=== PATIENT | male | born 1950 | race Caucasian/White ===

== ENCOUNTER → 2017-09-18 | Outpatient (CLI) | payer OTHER, MEDICARE ==
[2017-09-21 14:01] LABS: Large VLDL Particle Number,NMR 1.8 nmol/L (<=2.7)
== END | disposition home or self-care (01) ==
LOC: LABWHC1 08:13
PROVIDERS: ATTEND Internal Medicine Cardiovascular Disease
DX: I25.10 Atherosclerotic heart disease of native coronary artery without angina pectoris (principal)
CPT/HCPCS: 36415; 83704

== ENCOUNTER 2021-01-21 13:35 | Inpatient (IN) | payer MEDICARE, OTHER ==
[2021-01-21] MEDS ORDERED: SODIUM CHLORIDE 0.9% 1,000 ML IV STA (14:03)
--- NOTE | 2021-01-21 14:07 | ED ---
General Adult HPI - General Chief complaint: Neuro Symptoms/Deficit Stated complaint: Neuro Symptoms Time Seen by Provider: 01/21/21 13:43 Source: patient, EMS, RN notes reviewed Mode of arrival: EMS Limitations: altered mental status, physical limitation - History of Present Illness Initial comments: Patient is a pleasant 70-year-old male presenting to the emergency department with concern for change in mental status. Last known well was around 7:00 last night. Family thought patient was sleeping deeply. They did try to aggressively wake him up around 11:30 and found patient to be altered. Patient has not been feeling well for the past several days. Patient is nonverbal at this time and provides no history. - Related Data Home Medications Medication Instructions Recorded Confirmed Atorvastatin Calcium [Lipitor] 20 mg PO DAILY 01/21/21 01/21/21 Lisinopril [Prinivil] 10 mg PO DAILY 01/21/21 01/21/21 atenoloL [Atenolol] 25 mg PO DAILY 01/21/21 01/21/21 Allergies Allergy/AdvReac Type Severity Reaction Status Date / Time No Known Allergies Allergy Verified 01/21/21 17:06 Review of Systems ROS Statement: Those systems with pertinent positive or pertinent negative responses have been documented in the HPI. ROS Other: All systems not noted in ROS Statement are negative. Limitations: ROS unobtainable due to patients medical condition General Exam Limitations: altered mental status, physical limitation General appearance: alert, in no apparent distress Head exam: Present: atraumatic, normocephalic Eye exam: Present: normal appearance, PERRL, other (Unable to assess extraocular muscles) ENT exam: Present: normal oropharynx Neck exam: Present: normal inspection Respiratory exam: Present: normal lung sounds bilaterally Cardiovascular Exam: Present: regular rate, normal rhythm GI/Abdominal exam: Present: soft. Absent: tenderness Extremities exam: Present: normal inspection Neurological exam: Present: alert, altered, other (Right-sided neglect. Nonverbal.) Expanded Neurological exam: Present: total aphasia, protecting the airway Motor strength exam: RUE: 0, LUE: 5, RLE: 0, LLE: 4 Eye Response: (4) open spontaneously Motor Response: (4) withdraws to pain Verbal Response: incomprehensible sounds Psychiatric exam: Present: other (Nonverbal) Skin exam: Present: normal color Course Vital Signs 01/21/21 01/21/21 01/21/21 13:40 13:44 14:00 Temperature 97.5 F L 97.5 F L Pulse Rate 78 78 Respiratory 18 18 Rate Blood Pressure 110/66 87/70 O2 Sat by Pulse 99 100 Oximetry 01/21/21 01/21/21 01/21/21 14:15 14:30 14:45 Temperature Pulse Rate 78 78 78 Respiratory 18 18 18 Rate Blood Pressure 87/70 87/70 87/70 O2 Sat by Pulse 100 100 100 Oximetry 01/21/21 01/21/21 01/21/21 15:00 15:15 15:27 Temperature Pulse Rate 78 78 78 Respiratory 18 18 18 Rate Blood Pressure 87/70 87/70 87/70 O2 Sat by Pulse 100 100 100 Oximetry 01/21/21 16:02 Temperature 98.0 F Pulse Rate 87 Respiratory 16 Rate Blood Pressure 98/69 O2 Sat by Pulse 98 Oximetry - Reevaluation(s) Reevaluation #1: 01/21/21 16:09 Call was received from radiologist regarding concern for left MCA infarct. 2 mm shift. Neural interventional list has been paged. CTA held at this time secondary to renal function. Family is unclear on severity of previous renal issues however knows he has seen the primary care physician previously for this. Patient is not on dialysis. 01/21/21 17:21 Case was received discussed with Dr. Monk who did recommend transfer to [facility] for neuro ICU, potentially craniotomy. He agrees with no CTA at this time. Discussion had with family. They are unclear but do not think they wanted to transfer at this time. They're made aware of severity of this case and potential to be life-threatening. Case was also discussed with Dr. Zapata who will admit covering for Dr. De Leon. He did come evaluate patient. EKG Findings - EKG Comments: EKG Findings:: Normal sinus rhythm with rate 85. CT 168. QRS 74. QT 358. QTC 426. Left axis. Inferior Q waves. No acute ST change. Medical Decision Making - Lab Data Result diagrams: 01/21/21 14:10 01/21/21 14:10 Lab Results 01/21/21 01/21/21 01/21/21 Range/Units 14:00 14:10 14:10 WBC 16.8 H (3.8-10.6) k/uL RBC 4.55 (4.30-5.90) m/uL Hgb 14.8 (13.0-17.5) gm/dL Hct 43.0 (39.0-53.0) % MCV 94.5 (80.0-100.0) fL MCH 32.5 (25.0-35.0) pg MCHC 34.4 (31.0-37.0) g/dL RDW 12.6 (11.5-15.5) % Plt Count 439 (150-450) k/uL MPV 7.3 Neutrophils % 86 % Lymphocytes % 8 % Monocytes % 5 % Eosinophils % 0 % Basophils % 0 % Neutrophils # 14.5 H (1.3-7.7) k/uL Lymphocytes # 1.4 (1.0-4.8) k/uL Monocytes # 0.8 (0-1.0) k/uL Eosinophils # 0.1 (0-0.7) k/uL Basophils # 0.0 (0-0.2) k/uL PT 9.9 (9.0-12.0) sec INR 0.9 (<1.2) APTT 22.4 (22.0-30.0) sec Sodium (137-145) mmol/L Potassium (3.5-5.1) mmol/L Chloride (98-107) mmol/L Carbon Dioxide (22-30) mmol/L Anion Gap mmol/L BUN (9-20) mg/dL Creatinine (0.66-1.25) mg/dL Est GFR (CKD-EPI)AfAm (>60 ml/min/1.73 sqM) Est GFR (CKD-EPI)NonAf (>60 ml/min/1.73 sqM) Glucose (74-99) mg/dL POC Glucose (mg/dL) 125 H (75-99) mg/dL POC Glu Cut Off Machine Unloader ID Alondra Maza Calcium (8.4-10.2) mg/dL Total Bilirubin (0.2-1.3) mg/dL AST (17-59) U/L ALT (4-49) U/L Alkaline Phosphatase (38-126) U/L Troponin I (0.000-0.034) ng/mL Total Protein (6.3-8.2) g/dL Albumin (3.5-5.0) g/dL Urine Color Urine Appearance (Clear) Urine pH (5.0-8.0) Ur Specific [place] (1.001-1.035) Urine Protein (Negative) Urine Glucose (UA) (Negative) Urine Ketones (Negative) Urine Blood (Negative) Urine Nitrite (Negative) Urine Bilirubin (Negative) Urine Urobilinogen (<2.0) mg/dL Ur Leukocyte Esterase (Negative) Urine RBC (0-5) /hpf Urine WBC (0-5) /hpf Ur Squamous Epith Cells (0-4) /hpf Urine Bacteria (None) /hpf Urine Mucus (None) /hpf 01/21/21 01/21/21 01/21/21 Range/Units 14:10 14:10 14:14 WBC (3.8-10.6) k/uL RBC (4.30-5.90) m/uL Hgb (13.0-17.5) gm/dL Hct (39.0-53.0) % MCV (80.0-100.0) fL MCH (25.0-35.0) pg MCHC (31.0-37.0) g/dL RDW (11.5-15.5) % Plt Count (150-450) k/uL MPV Neutrophils % % Lymphocytes % % Monocytes % % Eosinophils % % Basophils % % Neutrophils # (1.3-7.7) k/uL Lymphocytes # (1.0-4.8) k/uL Monocytes # (0-1.0) k/uL Eosinophils # (0-0.7) k/uL Basophils # (0-0.2) k/uL PT (9.0-12.0) sec INR (<1.2) APTT (22.0-30.0) sec Sodium 135 L (137-145) mmol/L Potassium 5.0 (3.5-5.1) mmol/L Chloride 106 (98-107) mmol/L Carbon Dioxide 16 L (22-30) mmol/L Anion Gap 13 mmol/L BUN 85 H (9-20) mg/dL Creatinine 5.04 H (0.66-1.25) mg/dL Est GFR (CKD-EPI)AfAm 12 (>60 ml/min/1.73 sqM) Est GFR (CKD-EPI)NonAf 11 (>60 ml/min/1.73 sqM) Glucose 129 H (74-99) mg/dL POC Glucose (mg/dL) (75-99) mg/dL POC Glu Cut Off Machine Unloader ID Calcium 9.2 (8.4-10.2) mg/dL Total Bilirubin 0.3 (0.2-1.3) mg/dL AST 27 (17-59) U/L ALT 32 (4-49) U/L Alkaline Phosphatase 146 H (38-126) U/L Troponin I <0.012 (0.000-0.034) ng/mL Total Protein 7.6 (6.3-8.2) g/dL Albumin 4.3 (3.5-5.0) g/dL Urine Color Yellow Urine Appearance Cloudy (Clear) Urine pH 5.0 (5.0-8.0) Ur Specific [place] 1.016 (1.001-1.035) Urine Protein Trace H (Negative) Urine Glucose (UA) Negative (Negative) Urine Ketones Negative (Negative) Urine Blood Small H (Negative) Urine Nitrite Negative (Negative) Urine Bilirubin Negative (Negative) Urine Urobilinogen <2.0 (<2.0) mg/dL Ur Leukocyte Esterase Negative (Negative) Urine RBC 3 (0-5) /hpf Urine WBC 2 (0-5) /hpf Ur Squamous Epith Cells 2 (0-4) /hpf Urine Bacteria Rare H (None) /hpf Urine Mucus Rare H (None) /hpf - Radiology Data Radiology results: report reviewed (CT brain shows moderate to large left MCA acute to subacute infarct. No hemorrhage. 2 mm shift. No herniation. Possible mastoiditis.), image reviewed (Chest x-ray reported as no definite acute process.) Disposition Clinical Impression: Cerebrovascular accident (CVA) Disposition: ADMITTED IP TO THIS HOSP Condition: Serious Is patient prescribed a controlled substance at d/c from ED?: No Referrals: Alexandra De Leon MD [Primary Care Provider] - 1-2 days Decision Time: 17:22
[2021-01-21 14:11] LABS: Glucose,Whole Blood 125 mg/dL (75-99)
[2021-01-21 14:25] LABS: Basophils % (A) 0 %; Eosinophils # (A) 0.1 k/uL (0-0.7); Eosinophils % (A) 0 %; HGB 14.8 gm/dL (13.0-17.5); Lymphocytes # (A) 1.4 k/uL (1.0-4.8); Lymphocytes % (A) 8 %; MCH 32.5 pg (25.0-35.0); MCHC 34.4 g/dL (31.0-37.0); MCV 94.5 fL (80.0-100.0); Mean Platelet Volume 7.3; Monocytes # (A) 0.8 k/uL (0-1.0); Monocytes % (A) 5 %; Neutrophils # (A) 14.5 k/uL (1.3-7.7); Neutrophils % (A) 86 %; Platelet Count 439 k/uL (150-450); RBC 4.55 m/uL (4.30-5.90); RDW 12.6 % (11.5-15.5); WBC 16.8 k/uL (3.8-10.6)
[2021-01-21 14:32] LABS: Appearance,Urine Cloudy (Clear); Bacteria,Urine Rare /hpf; Bilirubin,Urine Negative (Negative); Blood,Urine Small (Negative); Color,Urine Yellow; Glucose,Urine (UA) Negative (Negative); Ketones,Urine Negative (Negative); Leukocyte Esterase,Urine Negative (Negative); Mucus,Urine Rare /hpf; Nitrite,Urine Negative (Negative); Protein,Urine Trace (Negative); RBC,Urine 3 /hpf (0-5); Specific Gravity,Urine 1.016 (1.001-1.035); Squamous Epithelial Cell,Urine 2 /hpf (0-4); Urobilinogen,Urine <2.0 mg/dL (<2.0); WBC,Urine 2 /hpf (0-5)
[2021-01-21 14:33] LABS: INR 0.9 (<1.2); Partial Thromboplastin Time 22.4 sec (22.0-30.0); Prothrombin Time 9.9 sec (9.0-12.0)
[2021-01-21 14:39] LABS: Albumin 4.3 g/dL (3.5-5.0); Calcium 9.2 mg/dL (8.4-10.2); Total Bilirubin 0.3 mg/dL (0.2-1.3); Total Protein 7.6 g/dL (6.3-8.2)
--- NOTE | 2021-01-21 15:26 | CT ---
EXAMINATION TYPE: CT brain wo con for TPA DATE OF EXAM: 01/21/2021 COMPARISON: None HISTORY: 70-year-old male with neurologic deficit, acute, stroke suspected, Left sided weakness, apha aundrea, altered mental status. TECHNIQUE: Examination was done in axial plane without intravenous contrast. Coronal and sagittal r econstructions performed. CT DLP: 1129.4 mGycm Automated exposure control for dose reduction was used. FINDINGS: Large area of cortical and subcortical hypodensity involving significant portion of the left MCA terr itory extending into the anterior left temporal lobe, left frontal lobe, and anterior left parietal l obe. Associated sulcal effacement. No acute intracranial hemorrhage is seen. There is minimal 2 mm of rightward midline shift and slight mass effect onto the left lateral ventricle. The right lateral ve ntricle is mildly enlarged likely secondary to central cerebellar atrophy. No effacement of basal subarachnoid cisterns. Paranasal sinuses are well pneumatized. Leftward nasal septal deviation. Opacification within the lef t-sided mastoid air cells. IMPRESSION: 1. Moderate to large sized left MCA territory acute to subacute infarct. No hemorrhagic transformatio n. Minimal 2 mm of rightward midline shift. No herniation seen. Findings called to Dr. Santamaria in the ER at 3:20pm. 2. Fluid in the left mastoid air cells, possible mastoiditis.
--- NOTE | 2021-01-21 15:42 | XR ---
EXAMINATION TYPE: XR chest 1V portable DATE OF EXAM: 01/21/2021 Comparison: None Clinical History: 70-year-old male confusion, altered mental status Findings: Heart upper limits of normal in size. Mild interstitial prominence. Hazy lung densities likely relati ng to portable technique and overlying soft tissue. No definite consolidation or pleural effusion all owing for this limitation. Impression: Limited portable exam. Hazy densities related to overlying soft tissue. No definite acute process.
[2021-01-21] MEDS ORDERED: ONDANSETRON 4 MG/2 ML VIAL IVP STA (15:46)
[2021-01-21] MEDS: ASPIRIN 300 MG SUPP RECTAL SCH (21:07)
[2021-01-21] MEDS: SODIUM CHLORIDE 0.9% 1,000 ML IV SCH (21:08)
--- NOTE | 2021-01-21 22:22 | P.HPIM ---
History of Present Illness H&P Date: 01/21/21 Chief Complaint: Altered mental status. Patient is a 70-year-old male with a known history of hypertension, history of MT and coronary artery disease with stent placement in 2002, previous history of smoking was brought to the hospital by family due to altered mental status. Patient last known well at about 7 PM last night. Patient has been increasingly sleepy and found by family around 11 AM. He was not responding well due to altered mental status and could not communicate. Family also noticed that his right arm and leg are not moving. according to the family patient has not been feeling well for the past 1 month. He is increasingly weak and lethargic. Decrease of oral intake. Patient does not have any fever or chills. No cough or sputum production. No n ausea vomiting or diarrhea. Currently patient is unable and mostly history was taken from the family at bedside. Patient was hypotensive with systolic pressure in the 80s and was given 2 L fluid bolus in the ER. CT head without contrast showed moderate to large left MCA territory acute to subacute infarct. No hemorrhagic transformation. Minimal 2 mm of rightward midline shift. Fluid in the left mastoid air cells possible mastoiditis. Chest x-ray showed limited portable chest. Hazy densities related to overlying soft tissue. No definite acute process. EKG showed normal sinus rhythm. Laboratory data showed WBC 16.8, hemoglobin 14.8 and platelets 439 Sodium 135 potassium 5.0 chloride 106 bicarb is 16 BUN 85 and creatinine 5.04, AST 27 ALT 32 and alk phos 146 UA is negative for infection. Review of Systems Complete review of systems could not be obtained from the patient. Past Medical History Past Medical History: Hypertension, Myocardial Infarction (MT) Last Myocardial Infarction Date:: 2002 History of Any Multi-Drug Resistant Organisms: None Reported Past Surgical History: Heart Catheterization With Stent, Hernia Repair Past Anesthesia/Blood Transfusion Reactions: No Reported Reaction Date of Last Stent Placement:: 2002 Past Psychological History: No Psychological Hx Reported Smoking Status: Former smoker Additional Drug Use History / Comment(s): quit smoking 2 months ago; smoked pac k/day - Past Family History Father Family Medical History: Myocardial Infarction (MT) Mother Family Medical History: CVA/TIA Medications and Allergies Home Medications Medication Instructions Recorded Confirmed Type Atorvastatin Calcium [Lipitor] 20 mg PO DAILY 01/21/21 01/21/21 History Lisinopril [Prinivil] 10 mg PO DAILY 01/21/21 01/21/21 History atenoloL [Atenolol] 25 mg PO DAILY 01/21/21 01/21/21 History Allergies Allergy/AdvReac Type Severity Reaction Status Date / Time No Known Allergies Allergy Verified 01/21/21 17:06 Physical Exam Vitals: Vital Signs Temp Pulse Pulse Resp BP BP Pulse Ox 01/21/21 19:44 98.9 F 96 18 107/92 98 01/21/21 18:32 98 F 93 15 107/70 99 01/21/21 16:02 98.0 F 87 16 98/69 98 01/21/21 15:27 78 18 87/70 100 01/21/21 15:15 78 18 87/70 100 01/21/21 15:00 78 18 87/70 100 01/21/21 14:45 78 18 87/70 100 01/21/21 14:30 78 18 87/70 100 01/21/21 14:15 78 18 87/70 100 01/21/21 14:00 78 18 87/70 100 01/21/21 13:44 97.5 F L 78 18 110/66 99 01/21/21 13:40 97.5 F L Intake and Output 01/21/21 01/21/21 01/21/21 06:59 14:59 22:59 Other: Weight 93.304 kg 93.304 kg PHYSICAL EXAMINATION: Patient is lying in the bed . Trying to communicate but could not speak.. Able to open his eyes HEENT: Normocephalic. Neck is supple. Pupils reactive. Nostrils clear. Oral cavity is moist. Neck reveals no JVD, carotid bruits, or thyromegaly. CHEST EXAMINATION: Trachea is central. Symmetrical expansion. Lung estevez clear to auscultation and percussion. CARDIAC: Normal S1, S2 with no gallops. No murmurs ABDOMEN: Soft. Bowel sounds normal. No organomegaly. No abdominal bruits. Extremities: reveal no edema. No clubbing or cyanosis Neurologically Patient is awake alert but not oriented. Right-sided paralysis. No mouth deviation or drooping. Skin: No rash or skin lesions. Psychiatric: Could not be assessed at this time. Musculoskeletal: No joint swelling or deformity. Normal range of motion. Results CBC & Chem 7: 01/21/21 14:10 01/21/21 14:10 Labs: Abnormal Lab Results - Last 24 Hours (Table) 01/21/21 01/21/21 01/21/21 Range/Units 14:00 14:10 14:10 WBC 16.8 H (3.8-10.6) k/uL Neutrophils # 14.5 H (1.3-7.7) k/uL Sodium 135 L (137-145) mmol/L Carbon Dioxide 16 L (22-30) mmol/L BUN 85 H (9-20) mg/dL Creatinine 5.04 H (0.66-1.25) mg/dL Glucose 129 H (74-99) mg/dL POC Glucose (mg/dL) 125 H (75-99) mg/dL Alkaline Phosphatase 146 H (38-126) U/L Urine Protein (Negative) Urine Blood (Negative) Urine Bacteria (None) /hpf Urine Mucus (None) /hpf 01/21/21 Range/Units 14:14 WBC (3.8-10.6) k/uL Neutrophils # (1.3-7.7) k/uL Sodium (137-145) mmol/L Carbon Dioxide (22-30) mmol/L BUN (9-20) mg/dL Creatinine (0.66-1.25) mg/dL Glucose (74-99) mg/dL POC Glucose (mg/dL) (75-99) mg/dL Alkaline Phosphatase (38-126) U/L Urine Protein Trace H (Negative) Urine Blood Small H (Negative) Urine Bacteria Rare H (None) /hpf Urine Mucus Rare H (None) /hpf Thrombosis Risk Factor Assmnt - DVT/VTE Prophylaxis DVT/VTE Prophylaxis: Mechanical Prophylaxis ordered - Choose All That Apply Any of the Below Risk Factors Present?: No Other Risk Factors: No Each Risk Factor Represents 3 Points: Family history of DVT/PE Each Risk Factor Represents 5 Points: Stroke (< 1 month) Thrombosis Risk Factor Assessment Total Risk Factor Score: 8 Thrombosis Risk Factor Assessment Level: High Risk Assessment and Plan Assessment: Acute left MCA territory infarct with right-sided paralysis. Acute kidney injury with creatinine level 5.04. possible ATN Metabolic acidosis secondary to acute kidney injury Hypovolemic hyponatremia Hypertension. Currently hypotensive Coronary artery disease with history of stent placement in 2002 Previous history of smoking DVT prophylaxis with SCDs Plan: Patient will be continued on telemetry monitoring. Continue with neurochecks. Continue with IV fluids. Monitor renal function. Patient was given a dose of aspirin statins will be started. Neurology was consulted. Discussed with the family regarding transfer to tertiary care facility for further surgical intervention if needed. Family does not want to be transferred at this time. Patient is not a candidate for TPA since the onset of symptoms more than 4 hours. Prognosis poor at this time. Speech and swallow evaluation and PT OT will be consulted.. Time with Patient: Greater than 30
--- NOTE | 2021-01-21 23:09 | US ---
EXAMINATION TYPE: US carotid duplex BILAT DATE OF EXAM: 01/21/2021 COMPARISON: NONE CLINICAL HISTORY: Stenosis. Stenosis. Hx [place], HTN, former smoker. EXAM MEASUREMENTS: RIGHT: Peak Systolic Velocity (PSV) cm/sec ----- Right CCA: 76.2 ----- Right ICA: 99.6 ----- Right ECA: 81.7 ICA/CCA ratio: 1.3 RIGHT: End Diastole cm/sec ----- Right CCA: 19.0 ----- Right ICA: 33.7 ----- Right ECA: 9.1 LEFT: Peak Systolic Velocity (PSV) cm/sec ----- Left CCA: 66.6 ----- Left ICA: 69.2 ----- Left ECA: 94.0 ICA/CCA ratio: 1.0 LEFT: End Diastole cm/sec ----- Left CCA: 7.2 ----- Left ICA: 9.9 ----- Left ECA: 7.2 VERTEBRALS (direction of flow): Right Vertebral: Antegrade Left Vertebral: Antegrade Rhythm: Normal Intimal thickening seen bilaterally. Plaque seen within bilateral carotid bulbs, bilateral prox ICA, and left ECA. Great amount of left prox ICA plaque which appears to be hypoechoic. No elevated veloc ities at this time. Hypoechoic area seen within the right neck measuring 2.4 x 0.6 x 0.4 cm. IMPRESSION: There is bilateral plaque formation. Velocities are suggestive of less than 50% stenosis in both inte rnal carotid arteries. There is antegrade flow in the vertebral arteries. Criteria for Assigning % of Stenosis / Diameter reduction (Estimation based on the indirect measurements of the internal carotid artery velocities (ICA PSV). 1. Normal (no stenosis)=ICA PSV < 125 cm/s: ratio < 2.0: ICA EDV<40 cm/s. 2. Less than 50% stenosis=ICA PSV < 125 cm/s: ratio < 2.0: ICA EDV<40 cm/s. 3. 50 to 69% stenosis=ICA PSV of 125 to 230 cm/s: ration 2.0 ? 4.0: ICA EDV 40-100 cm/s. 4. Greater than 70% stenosis to near occlusion= ICA PSV > 230 cm/s: ratio > 4.0: ICA EDV > 100 cm/s. 5. Near occlusion= ICA PSV velocities may be low or undetectable: variable ratio and ICA EDV. 6. Total occlusion=unable to detect flow.
[2021-01-22] MEDS: SODIUM CHLORIDE 0.9% 1,000 ML IV SCH ×3 (06:29→20:01)
[2021-01-22 07:35] LABS: Basophils % (A) 0 %; Eosinophils % (A) 0 %; HCT 41.7 % (39.0-53.0); Lymphocytes # (A) 1.2 k/uL (1.0-4.8); Lymphocytes % (A) 7 %; MCH 32.4 pg (25.0-35.0); MCHC 33.6 g/dL (31.0-37.0); MCV 96.5 fL (80.0-100.0); Monocytes % (A) 5 %; Neutrophils # (A) 15.9 k/uL (1.3-7.7); Neutrophils % (A) 87 %; Platelet Count 388 k/uL (150-450); RBC 4.32 m/uL (4.30-5.90); RDW 12.7 % (11.5-15.5); WBC 18.3 k/uL (3.8-10.6)
[2021-01-22 07:59] LABS: Calcium 9.2 mg/dL (8.4-10.2)
--- NOTE | 2021-01-22 08:26 | MR ---
EXAMINATION TYPE: MR brain wo con DATE OF EXAM: 01/22/2021 7:56 AM COMPARISON: NONE HISTORY: Stroke FINDINGS: The ventricles, basal cisterns and sulci overlying the cerebral convexities are moderately enlarged. There is evidence of mild periventricular white matter ischemic demyelination. Remote deep white matter insults are also noted. Diffusion-weighted imaging demonstrates a large area of abnormal increased signal involving the left middle cerebral artery territory measuring 10.2 cm in AP dimension compatible with acute CVA. There i s mass effect upon the left lateral ventricle. 2.5 mm of rightward midline shift. No evidence for hem orrhagic transformation. Acute intracranial hemorrhage or extra-axial collection is not evident. Chronic left mastoiditis. Mild mucosal thickening ethmoid air cells. IMPRESSION: large area of abnormal increased signal involving the left middle cerebral artery territory measuring 10.2 cm in AP dimension compatible with acute CVA. There is mass effect upon the left lateral ventri irena. 2.5 mm of rightward midline shift. No evidence for hemorrhagic transformation.
--- NOTE | 2021-01-22 09:15 | P.CNNES ---
History of Present Illness Consult date: 01/21/21 Requesting physician: Da Santamaria Reason for Consult: CVA History of Present Illness: Patient is a 70-year-old male came to the hospital by ambulance at 1:35 PM today for evaluation of mental status change. Patient at present is aphasic. Patient's and son were present, who provided with history. According to patient's , he has not been feeling well or last couple months. He was told that his knee is "too dry". He has been following up with his primary physician. He was not eating well, poor appetite. However still functional, and was talking normally. Last night he went to bed at 7 PM. This morning patient was still asleep at 11 AM, when patient's tried to wake him up, and he was in a deep sleep. She came back and then tried to wake him up but he would still not wakeup therefore she called the ambulance at 12:34 PM. When EMS arrived, patient was laying supine in his bed awake and tracks. He does not respond to speech, his face appears asymmetric and he only moves his left arm. His blood pressure was 105/68, pulse is 73, blood glucose 125 and temperature 98.1. Saturation 93%. Patient was brought to the hospital. Patient's vitals on arrival blood pressure 110/66, pulse is [address] head showed moderate to large size left MCA territory acute to subacute infarct. No hemorrhagic transformation. Minimal 2 mm of rightward midline shift. No herniation seen. Findings in the left mastoid air cells possible mastoiditis. Chest x-ray showed limited portable exam. Hazy densities related to overlying soft tissue. No definite acute process. EKG shows normal sinus rhythm. Left axis deviation. Blood test shows W BC 16.8 hemoglobin 14.8, platelets 439. PT/PTT normal. Sodium 135 potassium 5.0, BUN 85, creatinine 5.04. Hepatic panel normal. UA negative. In the ER, the ED staff discussed patient with stroke neurologist Dr. Hernandez. Patient was not a candidate for TPA, as he clearly came outside the window for TPA. CTA was not performed because of severe renal dysfunction. Patient is not on dialysis. At 5:21 PM stroke neurologist recommended patient to be transferred to [facility] for neuro ICU, potential craniotomy. The ED staff discussed the family and they were not sure to transfer the patient at this time. Patient does take Lipitor 20 mg, atenolol, aspirin 81 mg daily since he had an MRI or year ago, lisinopril. At present patient continues to be aphasic, with right hemiplegic. Patient does not have any history of hypertension or diabetes. He smoked 1 pack per day for 50 years, quit couple months ago. Review of Systems ROS unobtainable: due to mental status Past Medical History - Past Family History Father Family Medical History: Myocardial Infarction ([place]) Mother Family Medical History: CVA/TIA Medications and Allergies Home Medications Medication Instructions Recorded Confirmed Type Atorvastatin Calcium [Lipitor] 20 mg PO DAILY 01/21/21 01/21/21 History Lisinopril [Prinivil] 10 mg PO DAILY 01/21/21 01/21/21 History atenoloL [Atenolol] 25 mg PO DAILY 01/21/21 01/21/21 History Allergies Allergy/AdvReac Type Severity Reaction Status Date / Time No Known Allergies Allergy Verified 01/21/21 17:06 Physical Examination - Vital Signs Vital Signs: Vital Signs Temp Pulse Resp BP Pulse Ox 01/21/21 18:32 98 F 93 15 107/70 99 01/21/21 16:02 98.0 F 87 16 98/69 98 01/21/21 15:27 78 18 87/70 100 01/21/21 15:15 78 18 87/70 100 01/21/21 15:00 78 18 87/70 100 01/21/21 14:45 78 18 87/70 100 01/21/21 14:30 78 18 87/70 100 01/21/21 14:15 78 18 87/70 100 01/21/21 14:00 78 18 87/70 100 01/21/21 13:44 97.5 F L 78 18 110/66 99 01/21/21 13:40 97.5 F L Intake and Output 01/21/21 01/21/21 01/21/21 06:59 14:59 22:59 Other: Weight 93.304 kg Patient is an elderly male, who is laying in the bed, appears slightly groggy, but is awake and alert otherwise. Patient globally aphasic, cannot name, repeat or follow commands. Attention, concentration and fund of knowledge cannot be assessed. On cranial examination, pupils are round and reacting to light, patient has left gaze preference. visual estevez could not be checked, extraocular muscles are intact with no nystagmus. Patient has left facial weakness, central type,, patient did not protrude his tongue. Palatal elevation and sensation could not be checked, hearing and shoulder shrug and facial sensations could not be checked. On muscle strength testing, patient is flaccid in the right upper and right lower extremity. Patient does move his left arm voluntarily, holds it up in air and give some effort but because of comprehension, does not follow commands to the fullest. Likewise he seems to move his left leg fairly well but did not cooperate with examination. His strength appears normal in the left arm and left leg. Deep tendon reflexes are diminished and plantars are upgoing bilaterally. Sensory to touch could not be assessed. Cerebellar function could not be assessed. Tone and bulk of muscles normal. Gait not checked. On general examination, there is no carotid bruit or murmur, S1-S2 audible. Abdomen is soft nontender. Chest is clear. Peripheral pulses are present. No edema. Results - Laboratory Findings CBC and BMP: 01/22/21 06:56 01/22/21 06:56 Abnormal Lab Findings: Abnormal Labs 01/21/21 01/21/21 01/21/21 14:00 14:10 14:10 WBC 16.8 H Neutrophils # 14.5 H Sodium 135 L Carbon Dioxide 16 L BUN 85 H Creatinine 5.04 H Glucose 129 H POC Glucose (mg/dL) 125 H Alkaline Phosphatase 146 H Urine Protein Urine Blood Urine Bacteria Urine Mucus 01/21/21 14:14 WBC Neutrophils # Sodium Carbon Dioxide BUN Creatinine Glucose POC Glucose (mg/dL) Alkaline Phosphatase Urine Protein Trace H Urine Blood Small H Urine Bacteria Rare H Urine Mucus Rare H Assessment and Plan Assessment: * Acute ischemic stroke involving the left MCA vascular territory, presenting with global aphasia and right hemiplegia. Patient not a candidate for TPA or mechanical thrombectomy. * Acute kidney injury, uncertain if any chronic component. Patient's renal functions were normal as of 06/18/2019. * Hypertension * Tobacco use Plan: * I discussed with patient's and son about patient's current condition. It appears they were not very clear about the need for transfer, and the reason for transfer to a higher level of care. I informed the patient's that neurology services are available at [facility], however if patient's cerebral edema gets worse, then he may require craniotomy to relieve the pressure, and neurosurgery services not available in this hospital. Also informed them, that sometimes the need for craniotomy occurs suddenly/urgently, in which case transfer to her facility may take some time, which could have serious consequences including . Given patient's large stroke involving dominant hemisphere, and it querry long-term prognosis, patient's and son consented for patient to stay in the hospital. However is swelling gets worse, then would consider transfer in future. * Repeat computed tomography scan of head/MRI of the brain in a.m. for a follow- up. * Aspirin 325 mg rectally. * Carotid Doppler * 2-D echo with bubble study. * Fasting lipid panel and hemoglobin A1c * Continue neuro checks * Hydration for acute kidney injury. * Consider hypertonic saline/mannitol, if okay from renal standpoint.
[2021-01-22] MEDS: ATORVASTATIN 20 MG TAB PO SCH (11:23)
[2021-01-22] MEDS: ASPIRIN 300 MG SUPP RECTAL SCH (13:05)
[2021-01-22] MEDS: MANNITOL 20% IV SCH ×2 (13:11→19:59)
--- NOTE | 2021-01-22 15:04 | P.PN ---
Subjective Progress Note Date: 01/22/21 Patient was seen for a follow-up. Patient's son was present today. Patient appears more lethargic today. Please refer to examination below. Objective - Vital Signs Vital signs: Vital Signs Temp 98.2 F 01/22/21 08:15 Pulse 79 01/22/21 08:15 Resp 18 01/22/21 08:15 BP 110/71 01/22/21 08:15 Pulse Ox 99 01/22/21 08:15 Intake & Output 01/21/21 01/22/21 01/22/21 18:59 06:59 18:59 Intake Total 0 Output Total 875 Balance -875 0 Weight 93.304 kg 110 kg Intake: Oral 0 Output: Urine 875 Other: Voiding Method Indwelling Catheter Indwelling Catheter - Exam On examination patient is lethargic, but does open his eyes, and makes eye contact. He does track. Patient does not comprehend. Patient is globally aphasic. Cannot name, repeat. On cranial nerve examination pupils are round and reacting. Patient has some roving eye movements at time. Extraocular muscles are intact. Patient has right facial asymmetry. Patient is right hemiplegic. Strength is normal on the left side. Reflexes are brisk on the right. Plantars up on the right, down on left. Sensations and cerebellar functions cannot be assessed. - Labs CBC & Chem 7: 01/22/21 06:56 01/22/21 06:56 Labs: Abnormal Lab Results - Last 24 Hours (Table) 01/22/21 01/22/21 Range/Units 06:56 06:56 WBC 18.3 H (3.8-10.6) k/uL Neutrophils # 15.9 H (1.3-7.7) k/uL Chloride 110 H (98-107) mmol/L Carbon Dioxide 17 L (22-30) mmol/L BUN 86 H (9-20) mg/dL Creatinine 3.73 H (0.66-1.25) mg/dL Glucose 135 H (74-99) mg/dL Assessment and Plan Assessment: * Acute ischemic stroke involving the left MCA vascular territory, presenting with global aphasia and right hemiplegia. Patient not a candidate for TPA or mechanical thrombectomy. * Acute kidney injury, uncertain if any chronic component. Patient's renal fu nctions were normal as of 06/18/2019. * Hypertension * Tobacco use Plan: * MRI of the brain without contrast was performed today. It revealed a large area of abnormal increased signal involving the left middle cerebral artery territory measuring 10.2 cm in the AP diameter mentioned compatible with acute CVA. There is mass effect upon the lateral ventricle. 2.5 mm of rightward midline shift. No evidence for hemorrhage. * Patient still has significant amount of left ventricular cavity preserved, which could prevent from worsening midline shifting or herniation. * Recommend hypertonic saline or mannitol for the next 24-48 hours, if okay from a renal standpoint. * Continue Aspirin 300 mg rectally. (Avoid dual antiplatelet medication because of high risk of hemorrhagic conversion) * Carotid Doppler revealed bilateral plaque formation. Velocities are suggestive of less than 50% stenosis in both ICA. Antegrade flow in both vertebral arteries. * 2-D echo with bubble study was technically difficult study. Left ventricular wall thickness, systolic functions are normal. EF greater than 55%. Left ventricle size is normal. Left atrial size is normal. Noted valve was not well visualized. * Fasting lipid panel still pending * Hemoglobin A1c 6.3 * Continue neuro checks * Transfer to ICU for more closer monitoring. * Hydration for acute kidney injury. Patient's renal functions has improved BUN 86, creatinine 3.73. * Consider hypertonic saline/mannitol, if okay from renal standpoint. * Repeat computed tomography scan of head of the brain in a.m. 01/23/2021 for a follow-up. Dr. Everett will resume neurology care in the morning. * Discussed with patient's son in detail.
[2021-01-22 15:48] LABS: Glucose,Whole Blood 119 mg/dL (75-99)
--- NOTE | 2021-01-22 16:41 | P.CNPUL ---
History of Present Illness Consult date: 01/22/21 Requesting physician: Carmen Zapata Reason for consult: other Chief complaint: CVA. History of present illness: Pulmonary consultation dated 01/22/2021. 70-year-old male who presented to the emergency department on 01/21/2021, at 1335. He apparently was noted to have mental status changes around 7:00 from the prior night. Apparently family members are was just sleeping deeply. The patient was evaluated, and was thought to have a ischemic stroke, involving the left middle cerebral artery. Currently, the patient is in the intensive care unit. He was transferred there because of a midline shift on a computed tomography scan. He is receiving mannitol, nasal O2 at 3 L, and saline at 100 mL an hour. He was admitted to the hospital service and he was consulted by neurology. Currently, the patient is responsive but very lethargic and somnolent. He does open his eyes. He does respond to verbal commands. He can move his left side. He does not move his right upper extremity at all. He has a right facial droop, he can flare his toes on his right foot. The patient apparently has a history of myocardial infarction, prior stent placement, hernia, chronic tobacco use, and hypertension. Home medications included that the tour, lisinopril, and atenolol. There were no ALLERGIES. White count 18.3, he will 14, hematocrit 41.7, and platelet count 388,000. PT, INR, and PTT are normal. Sodium is 138, potassium 5, chlorides 110, CO2 17, anion gap 11, with a BUN and creatinine of 86 and 3.73. Urine shows rare bacteria. Brain CT on admission shows moderate to large sized left MCA territory acute to subacute infarct. No hemorrhagic transformation. There is 2 mm a right which midline shift. No herniation. Chest x-ray shows no acute process. Carotid Doppler shows bilateral plaque formation and velocities are suggestive of less than 50% stenosis in both internal carotid arteries. Brain MRI shows large area of abnormal increased signal involving the left middle cerebral artery territory measuring 10.2 cm in AP dimension compatible with an acute CVA. There is mass effect upon the left lateral ventricle. 2.5 mm of rightward midline shift. No evidence of hemorrhagic transformation. Review of Systems REVIEW OF SYSTEMS: CONSTITUTIONAL: [Negative.] NEUROLOGIC: Right facial droop, and profound right-sided weakness/paresis. HEENT: [ Negative.] CARDIAC: [Negative.] PULMONARY: [Negative.] GI: [Negative.] : [Negative.] RHEUMATOLOGIC: [ Negative.] IMMUNOLOGIC: [ Negative.] ENDOCRINE: [Negative. ] DERMATOLOGIC: [Negative.] Past Medical History Past Medical History: Hypertension, Myocardial Infarction ([place]) Last Myocardial Infarction Date:: 2002 History of Any Multi-Drug Resistant Organisms: None Reported Past Surgical History: Heart Catheterization With Stent, Hernia Repair Past Anesthesia/Blood Transfusion Reactions: No Reported Reaction Date of Last Stent Placement:: 2002 Past Psychological History: No Psychological Hx Reported Smoking Status: Former smoker Additional Drug Use History / Comment(s): quit smoking 2 months ago; smoked pack/day - Past Family History Father Family Medical History: Myocardial Infarction ([place]) Mother Family Medical History: CVA/TIA Medications and Allergies Home Medications Medication Instructions Recorded Confirmed Type Atorvastatin Calcium [Lipitor] 20 mg PO DAILY 01/21/21 01/21/21 History Lisinopril [Prinivil] 10 mg PO DAILY 01/21/21 01/21/21 History atenoloL [Atenolol] 25 mg PO DAILY 01/21/21 01/21/21 History Allergies Allergy/AdvReac Type Severity Reaction Status Date / Time No Known Allergies Allergy Verified 01/21/21 17:06 Physical Exam Osteopathic Statement: *. No significant issues noted on an osteopathic structural exam other than those noted in the History and Physical/Consult. Vitals: Vital Signs Temp Pulse Pulse Resp BP BP Pulse Ox 01/22/21 16:00 98.6 F 76 20 101/67 99 01/22/21 14:00 18 01/22/21 12:00 97.7 F 78 18 100/66 98 01/22/21 08:15 98.2 F 79 18 110/71 99 01/22/21 04:00 97.4 F L 83 16 99/66 97 01/22/21 00:00 98.0 F 74 18 100/67 98 01/21/21 20:00 96 18 106/73 99 01/21/21 19:44 98.9 F 96 18 107/92 98 01/21/21 18:32 98 F 93 15 107/70 99 Intake and Output 01/22/21 01/22/21 01/22/21 06:59 14:59 22:59 Intake Total 0 1038 Output Total 875 300 Balance -875 0 738 Intake: Intake, IV Titration 1038 Amount Empty Bag 1 bag In 138 Mannitol 20% Pmx 138 ml @ 276 mls/hr IV Q8H SISSY Rx #:[id number] Sodium Chloride 0.9% 1, 900 000 ml @ 100 mls/hr IV . Q10H SISSY Rx#:[id number] Oral 0 Output: Urine 875 300 Other: Voiding Method Indwelling Catheter Indwelling Catheter Weight 110 kg No acute distress, very lethargic/somnolent, but does arouse, currently on 3 L nasal cannula. HEENT examination is grossly unremarkable. Neck supple. Full range of motion. No adenopathy thyromegaly or neck vein distention. Cardiovascular examination reveals regular rhythm rate. S1-S2 normal. No S3 or S4. No discernible murmur noted. Heart rate 76 bpm. Lungs reveal scattered bilateral rhonchi. No wheezes or crackles. I believe the patient's at high risk for aspiration. Abdomen soft bowel sounds are heard. No masses or tenderness. Extremities are intact. No cyanosis clubbing or edema. Skin is without rash or lesion. Neurologic examination reveals a somewhat lethargic/somnolent individual who miguel s arouse and does respond to verbal stimuli. He can move his left side. He's a right facial droop. He has no movement in his right upper extremity. He can flare the toes of the right foot. Results - Laboratory Findings CBC and BMP: 01/22/21 06:56 01/22/21 06:56 PT/INR, D-dimer PT 9.9 sec (9.0-12.0) 01/21/21 14:10 INR 0.9 (<1.2) 01/21/21 14:10 Abnormal lab findings: Abnormal Labs 01/21/21 01/21/21 01/21/21 14:00 14:10 14:10 WBC 16.8 H Neutrophils # 14.5 H Sodium 135 L Chloride Carbon Dioxide 16 L BUN 85 H Creatinine 5.04 H Glucose 129 H POC Glucose (mg/dL) 125 H Alkaline Phosphatase 146 H Urine Protein Urine Blood Urine Bacteria Urine Mucus 01/21/21 01/22/21 01/22/21 14:14 06:56 06:56 WBC 18.3 H Neutrophils # 15.9 H Sodium Chloride 110 H Carbon Dioxide 17 L BUN 86 H Creatinine 3.73 H Glucose 135 H POC Glucose (mg/dL) Alkaline Phosphatase Urine Protein Trace H Urine Blood Small H Urine Bacteria Rare H Urine Mucus Rare H 01/22/21 15:47 WBC Neutrophils # Sodium Chloride Carbon Dioxide BUN Creatinine Glucose POC Glucose (mg/dL) 119 H Alkaline Phosphatase Urine Protein Urine Blood Urine Bacteria Urine Mucus - Diagnostic Findings Chest x-ray: image reviewed Assessment and Plan Assessment: Acute left MCA infarct, with midline shift, and with significant right sided weakness. History of CAD, with previous myocardial infarction, and stent placement. History of ongoing tobacco use until recently. History of hypertension. Acute kidney injury versus chronic kidney disease. Plan: Plan dated 01/22/2021. Apparently the neurology services wanted the patient transferred to [facility]. For some reason, the refused. The patient is a full code. The patient is receiving nasal O2, saline, and also mannitol. In addition, orders for aspirin, Lipitor, and Zofran are noted. The patient should have nothing by mouth at this time. I believe he is at high risk for aspiration. Additional recommendations and suggestions are forthcoming. I've asked the ICU nurse to contact the hospital service, and begin the transfer process. I did speak to some family members in the waiting room. Time with Patient: Greater than 30
--- NOTE | 2021-01-22 17:11 | ECHOF ---
Referral Reason:Thrombus MEASUREMENTS -------- HEIGHT: 182.9 cm WEIGHT: 109.8 kg BP: RVIDd: 3.8 cm (< 3.3) IVSd: 0.9 cm (0.6 - 1.1) LVIDd: 5.2 cm (3.9 - 5.3) LVPWd: 1.0 cm (0.6 - 1.1) IVSs: 1.2 cm LVIDs: 3.5 cm LVPWs: 1.4 cm MV E Trevin: 0.45 m/s MV DecT: 180 ms MV A Trevin: 0.70 m/s MV E/A Ratio: 0.64 RAP: 5.00 mmHg RVSP: 10.90 mmHg FINDINGS -------- Sinus rhythm. This was a techncally difficult study with suboptimal views, , Lumason utilized for enhancement of im ages. LV size, wall thickness and systolic function are normal, with an EF greater than 55%. The left yisel tricular size is normal. The right ventricle is mildly enlarged. The left atrial size is normal. The right atrial size is normal. 5.0mg OF Lumason UTLIZED: 2 OR MORE WALL SEGMENTS NOT VISUALIZED. The aortic valve was not well visualized. Mild mitral regurgitation is present. Mild tricuspid regurgitation present. Right ventricular systolic pressure is normal at < 35 mmHg. The pulmonic valve was not well visualized. There is a trivial pericardial effusion present. CONCLUSIONS -------- 1. This was a techncally difficult study with suboptimal views, , Lumason utilized for enhancement of images. 2. LV size, wall thickness and systolic function are normal, with an EF greater than 55%. 3. The left ventricular size is normal. 4. The right ventricle is mildly enlarged. 5. The left atrial size is normal. 6. The right atrial size is normal. 7. 5.0mg OF Lumason UTLIZED: 2 OR MORE WALL SEGMENTS NOT VISUALIZED. 8. The aortic valve was not well visualized. 9. Mild mitral regurgitation is present. 10. Mild tricuspid regurgitation present. 11. The pulmonic valve was not well visualized. 12. There is a trivial pericardial effusion present. EARLY CHILDHOOD AIDE CLASSROOM: Lisa Vanessa RDCS
[2021-01-22 17:49] LABS: Hemoglobin A1C 6.3 % (4.0-6.0)
[2021-01-23 03:08] LABS: Chol/HDL Ratio 4.84; LDL Cholesterol,Calculated 101.8 mg/dL (0.0-131.0); VLDL Calculation 21.2 mg/dL (5.00-40.00)
[2021-01-23] MEDS: MANNITOL 20% IV SCH (04:02)
[2021-01-23] MEDS: SODIUM CHLORIDE 0.9% 1,000 ML IV SCH (04:03)
[2021-01-23] MEDS: ATORVASTATIN 20 MG TAB PO SCH (07:46)
[2021-01-23] MEDS: ASPIRIN 300 MG SUPP RECTAL SCH (07:52)
--- NOTE | 2021-01-23 10:16 | P.PN ---
Subjective Progress Note Date: 01/23/21 Principal diagnosis: Acute CVA involving the left MCA 70-year-old male who presented to the emergency department on 01/21/2021, at 1335. He apparently was noted to have mental status changes around 7:00 from the prior night. Apparently family members are was just sleeping deeply. The patient was evaluated, and was thought to have a ischemic stroke, involving the left middle cerebral artery. Currently, the patient is in the intensive care unit. He was transferred there because of a midline shift on a computed tomography scan. He is receiving mannitol, nasal O2 at 3 L, and saline at 100 mL an hour. He was admitted to the hospital service and he was consulted by neurology. Currently, the patient is responsive but very lethargic and somnolent. He does open his eyes. He does respond to verbal commands. He can move his left side. He does not move his right upper extremity at all. He has a right facial droop, he can flare his toes on his right foot. The patient apparently has a history of myocardial infarction, prior stent placement, hernia, chronic tobacco use, and hypertension. Home medications included that the tour, lisinopril, and atenolol. There were no ALLERGIES. White count 18.3, he will 14, hematocrit 41.7, and platelet count 388,000. PT, INR, and PTT are normal. Sodium is 138, potassium 5, chlorides 110, CO2 17, anion gap 11, with a BUN and creatinine of 86 and 3.73. Urine shows rare bacteria. Brain CT on admission shows moderate to large sized left MCA territory acute to subacute infarct. No hemorrhagic transformation. There is 2 mm a right which midline shift. No herniation. Chest x-ray shows no acute process. Carotid Doppler shows bilateral plaque formation and velocities are suggestive of less than 50% stenosis in both internal carotid arteries. Brain MRI shows large area of abnormal increased signal involving the left middle cerebral artery territory measuring 10.2 cm in AP dimension compatible with an acute CVA. There is mass effect upon the left lateral ventricle. 2.5 mm of rightward midline shift. No evidence of hemorrhagic transformation. The patient is seen today 01/23/2021 in follow-up in the intensive care unit. He is currently awake, weak. He is aphasic and has right hemiplegia. He was not a candidate for TPA or thrombectomy per neurology. MRI of the brain had revealed a large area of abnormal increased signal involving the left middle cerebral artery territory measuring 10.2 cm compatible with acute CVA. There is mass effect upon the lateral ventricle. 2.5 mm of rightward midline shift. No evidence of hemorrhage. He did receive mannitol. Remains on statins and aspirin. 0.9 normal saline at 100 ML's per hour. Follow-up CAT scan of the brain is pending. Objective - Vital Signs Vital signs: Vital Signs Temp 97.9 F 01/23/21 08:00 Pulse 86 01/23/21 08:00 Resp 25 H 01/23/21 08:00 BP 108/70 01/23/21 08:00 Pulse Ox 95 01/23/21 08:00 Intake & Output 01/22/21 01/23/21 01/23/21 18:59 06:59 18:59 Intake Total 1238 1476 200 Output Total 820 1980 190 Balance 418 -504 10 Weight 92.8 kg Intake: IV 1376 200 Empty Bag 1 bag In 276 Mannitol 20% Pmx 138 ml @ 276 mls/hr IV Q8H [facility] Rx #:[id number] Sodium Chloride 0.9% 1, 1100 200 000 ml @ 100 mls/hr IV . Q10H [facility] Rx#:[id number] Intake, IV Titration 1238 100 Amount Empty Bag 1 bag In 138 Mannitol 20% Pmx 138 ml @ 276 mls/hr IV Q8H [facility] Rx #:[id number] Sodium Chloride 0.9% 1, 1100 100 000 ml @ 100 mls/hr IV . Q10H [facility] Rx#:[id number] Oral 0 Output: Urine 820 1980 190 Other: Voiding Method Indwelling Catheter Indwelling Catheter Indwelling Catheter - Exam 70-year-old gentleman. No acute distress, arousable, aphasic, currently on 2 L nasal cannula. HEENT examination is grossly unremarkable. Right-sided asymmetry Neck supple. Full range of motion. No adenopathy thyromegaly or neck vein distention. Cardiovascular examination reveals regular rhythm rate. S1-S2 normal. No S3 or S4. No discernible murmur noted. Heart rate 76 bpm. Lungs reveal scattered bilateral rhonchi. No wheezes or crackles. The patient is at high risk for aspiration. Abdomen soft bowel sounds are heard. No masses or tenderness. Extremities are intact. No cyanosis clubbing or edema. Skin is without rash or lesion. Neurologic examination reveals an awake somewhat lethargic, individual who does arouse and does respond to verbal stimuli. He can move his left side. He's a right facial droop. He has no movement in his right upper extremity. He can flare the toes of the right foot. - Labs CBC & Chem 7: 01/22/21 06:56 01/22/21 06:56 Labs: Abnormal Lab Results - Last 24 Hours (Table) 01/22/21 01/22/21 01/22/21 Range/Units 06:56 06:56 15:47 POC Glucose (mg/dL) 119 H (75-99) mg/dL Hemoglobin A1c 6.3 H (4.0-6.0) % HDL Cholesterol 32.0 L (40.0-60.0) mg/dL Assessment and Plan Assessment: 1 Acute left MCA infarct, with midline shift, and with significant right sided weakness. 2 History of CAD, with previous myocardial infarction, and stent placement. 3 History of ongoing tobacco use until recently. 4 History of hypertension. 5 Acute kidney injury versus chronic kidney disease. Plan: The patient was seen and evaluated by Dr. Lyons Follow-up computed tomography scan of the brain is pending Neurology is on the case Remains on statins, aspirin PT/OT/Speech therapy Will monitor here in the ICU another 24 hours I, the cosigning physician, performed a history & physical examination of the patient. Lungs sounds with few scattered rhonchi. Maintaining good O2 saturations in the 90s on 2 L/m per nasal cannula I discussed the assessment and plan of care with my nurse practitioner, Che Salinas. I attest to the above note as dictated by her.
[2021-01-23 10:48] LABS: Basophils # (A) 0.1 k/uL (0-0.2); Basophils % (A) 0 %; Eosinophils % (A) 0 %; HCT 43.6 % (39.0-53.0); HGB 14.4 gm/dL (13.0-17.5); Lymphocytes # (A) 0.9 k/uL (1.0-4.8); Lymphocytes % (A) 6 %; MCH 32.2 pg (25.0-35.0); MCV 97.5 fL (80.0-100.0); Monocytes # (A) 0.8 k/uL (0-1.0); Monocytes % (A) 5 %; Neutrophils # (A) 14.2 k/uL (1.3-7.7); Neutrophils % (A) 88 %; Platelet Count 393 k/uL (150-450); RBC 4.48 m/uL (4.30-5.90); RDW 12.9 % (11.5-15.5); WBC 16.2 k/uL (3.8-10.6)
[2021-01-23 10:57] LABS: Albumin 3.8 g/dL (3.5-5.0); Calcium 9.2 mg/dL (8.4-10.2); Potassium 5.1 mmol/L (3.5-5.1); Total Bilirubin 0.4 mg/dL (0.2-1.3); Total Protein 6.9 g/dL (6.3-8.2)
--- NOTE | 2021-01-23 11:05 | P.PN ---
Subjective Progress Note Date: 01/23/21 Principal diagnosis: acute left middle cerebral artery infarct The patient is a 70-year-old male who is seen in neurologic follow-up on January 23, 2021, via teleneurology. The patient's history is reviewed. MRI and CT scan images are reviewed. The patient is seen in the intensive care unit. According to his nurse, the patient did receive mannitol. There has been no definitive change in his neurologic status. The patient was seen by speech therapy who felt the patient should remain nothing by mouth. He is at high risk for aspiration. Objective - Vital Signs Vital signs: Vital Signs Temp 97.9 F 01/23/21 08:00 Pulse 89 01/23/21 10:00 Resp 19 01/23/21 10:00 BP 110/65 01/23/21 10:00 Pulse Ox 94 L 01/23/21 10:00 Intake & Output 01/22/21 01/23/21 01/23/21 18:59 06:59 18:59 Intake Total 1238 1476 400 Output Total 820 1980 490 Balance 418 -504 -90 Weight 92.8 kg Intake: IV 1376 400 Empty Bag 1 bag In 276 Mannitol 20% Pmx 138 ml @ 276 mls/hr IV Q8H [facility] Rx #:[id number] Sodium Chloride 0.9% 1, 1100 400 000 ml @ 100 mls/hr IV . Q10H [facility] Rx#:[id number] Intake, IV Titration 1238 100 Amount Empty Bag 1 bag In 138 Mannitol 20% Pmx 138 ml @ 276 mls/hr IV Q8H [facility] Rx #:[id number] Sodium Chloride 0.9% 1, 1100 100 000 ml @ 100 mls/hr IV . Q10H [facility] Rx#:[id number] Oral 0 Output: Urine 820 1980 490 Other: Voiding Method Indwelling Catheter Indwelling Catheter Indwelling Catheter - Exam Gen.: The patient is reclining in the bed. He has 2 L O2 via nasal cannula. He is in no acute distress. HEENT: Head is atraumatic, normocephalic. Fundus not visualized. There is no scleral icterus. Mucous membranes are dry. Neck: Supple without carotid bruits Heart: Regular rate and rhythm Neurological examination Mental status: The patient does open his eyes to his name. There is some spontaneous movement of the left upper extremity. The patient is nonverbal. He follows no commands. Cranial nerves: Pupils are equal at 5 mm and briskly reactive. There are some a roving eye movements. There is no gaze preference. There is a right facial droop. Gag reflex is absent. Motor: Right upper and lower extremities are flaccid. There is some movement of the left upper extremity. Muscle strength testing cannot be carried out secondary to comprehension. Sensation: The patient does localize and grimace in response to noxious stimulation of the right upper and left upper and lower extremities. There is no withdrawal. Deep tendon reflexes: 1+/4+ in the left upper extremity. Left lower extremity reflexes are absent. Right-sided reflexes 2+/4+. Repeat CT scan of the brain was performed this morning. There is no evidence of hemorrhage. There is no evidence of herniation. CT scan appears to be stable. - Labs CBC & Chem 7: 01/23/21 10:23 01/23/21 10:23 Labs: Abnormal Lab Results - Last 24 Hours (Table) 01/22/21 01/22/21 01/22/21 Range/Units 06:56 06:56 15:47 POC Glucose (mg/dL) 119 H (75-99) mg/dL Hemoglobin A1c 6.3 H (4.0-6.0) % HDL Cholesterol 32.0 L (40.0-60.0) mg/dL Assessment and Plan Assessment: 1. Large left middle cerebral artery infarct with compression of the left lateral ventricle and midline shift 2. Carotid Doppler reports proximal left ICA plaque 3. 2-D echocardiogram reveals no significant findings. I am unable to determine if this study was performed with saline 4. Acute kidney injury 5. History of coronary artery disease 6. History of hypertension Plan: 1. Continue to closely monitor neurologic status 2. Discussed status with the patient's and daughter 3. Continue supportive care Time with Patient: Greater than 30 (spent 35 minutes with patient via teleneurology)
--- NOTE | 2021-01-23 15:26 | CT ---
EXAMINATION TYPE: CT brain wo con DATE OF EXAM: 01/23/2021 COMPARISON: 01/21/2021 HISTORY: 70-year-old male AMS TECHNIQUE: Examination was done in axial plane without intravenous contrast. Coronal and sagittal r econstructions performed. CT DLP: 1200.4 mGycm Automated exposure control for dose reduction was used. FINDINGS: Evolving left MCA territory infarct with increasing degree of hypodensity. This involves greater than of third of the entire left MCA territory. There is greater degree of mass effect with greater parti al flattening of the left lateral ventricle and now 4 mm of rightward midline shift. No cristina herniat ion. No effacement of basal subarachnoid cisterns. No acute intracranial hemorrhage. Background mild ventricular prominence. Opacification of left mastoid air cells redemonstrated. Leftward nasal septal deviation. IMPRESSION: Evolving left MCA territory infarct with greater degree of hypodensity. Infarct involves more than a third of the MCA territory. Greater degree of mass effect now with slight 4 mm of rightward midline s hift and greater degree of partial flattening of the left lateral ventricle. No hemorrhagic transform ation.
[2021-01-24 04:55] LABS: Basophils % (A) 0 %; Eosinophils # (A) 0.1 k/uL (0-0.7); Eosinophils % (A) 0 %; HCT 40.9 % (39.0-53.0); HGB 13.3 gm/dL (13.0-17.5); Lymphocytes # (A) 1.4 k/uL (1.0-4.8); Lymphocytes % (A) 8 %; MCH 31.8 pg (25.0-35.0); MCHC 32.6 g/dL (31.0-37.0); MCV 97.5 fL (80.0-100.0); Mean Platelet Volume 7.4; Monocytes # (A) 0.7 k/uL (0-1.0); Monocytes % (A) 4 %; Neutrophils # (A) 16.3 k/uL (1.3-7.7); Neutrophils % (A) 87 %; Platelet Count 365 k/uL (150-450); RDW 13.2 % (11.5-15.5); WBC 18.7 k/uL (3.8-10.6)
[2021-01-24 05:21] LABS: Albumin 3.3 g/dL (3.5-5.0); Calcium 9.1 mg/dL (8.4-10.2); Potassium 4.7 mmol/L (3.5-5.1); Total Bilirubin 0.5 mg/dL (0.2-1.3); Total Protein 6.3 g/dL (6.3-8.2)
[2021-01-24] MEDS: SODIUM CHLORIDE 0.9% 1,000 ML IV SCH ×2 (07:54→07:55)
[2021-01-24] MEDS: ATORVASTATIN 20 MG TAB PO SCH (08:55)
[2021-01-24] MEDS: ASPIRIN 300 MG SUPP RECTAL SCH (08:58)
--- NOTE | 2021-01-24 09:36 | P.PN ---
Subjective Progress Note Date: 01/22/21 Principal diagnosis: Acute ischemic CVA Patient is a 70-year-old male with a known history of hypertension, history of [place] and coronary artery disease with stent placement in 2002, previous history of smoking was brought to the hospital by family due to altered mental status. Johnny bui last known well at about 7 PM last night. Patient has been increasingly sleepy and found by family around 11 AM. He was not responding well due to altered mental status and could not communicate. Family also noticed that his right arm and leg are not moving. according to the family patient has not been feeling well for the past 1 month. He is increasingly weak and lethargic. Decrease of oral intake. Patient does not have any fever or chills. No cough or sputum production. No nausea vomiting or diarrhea. Currently patient is unable and mostly history was taken from the family at bedside. Patient was hypotensive with systolic pressure in the 80s and was given 2 L fluid bolus in the ER. CT head without contrast showed moderate to large left MCA territory acute to subacute infarct. No hemorrhagic transformation. Minimal 2 mm of rightward midline shift. Fluid in the left mastoid air cells possible mastoiditis. Chest x-ray showed limited portable chest. Hazy densities related to overlying soft tissue. No definite acute process. EKG showed normal sinus rhythm. Laboratory data showed WBC 16.8, hemoglobin 14.8 and platelets 439 Sodium 135 potassium 5.0 chloride 106 bicarb is 16 BUN 85 and creatinine 5.04, AST 27 ALT 32 and alk phos 146 UA is negative for infection. Pt. is in the telemetry unit. Patient's mental status and weakness. Able to open his eyes but could not communicate. The patient is more lethargic. MRI of the brain was done showed large area of abnormal increased signal involving the left MCA territory with mass effect on the lateral ventricle. 2 mm rightward midline shift. Neurology is following. Recommended to start on mannitol. Patient will be transferred to ICU for close monitoring. Laboratory data showed WBC 18.3, hemoglobin 14.0 and platelets 388 BUN 86 and creatinine 3.73. Improving renal function. LDL 101.8 and B12 749 and TSH 0.983 Complete review of systems could not be obtained from the patient. Objective - Vital Signs Vital signs: Vital Signs Temp 97.4 F L 01/22/21 20:00 Pulse 87 01/22/21 22:00 Resp 22 01/22/21 22:00 BP 104/63 01/22/21 22:00 Pulse Ox 95 01/22/21 22:00 Intake & Output 01/22/21 01/22/21 01/23/21 06:59 18:59 06:59 Intake Total 1238 538 Output Total 875 820 950 Balance -875 418 -412 Weight 110 kg Intake: IV 438 Empty Bag 1 bag In 138 Mannitol 20% Pmx 138 ml @ 276 mls/hr IV Q8H [facility] Rx #:[id number] Sodium Chloride 0.9% 1, 300 000 ml @ 100 mls/hr IV . Q10H [facility] Rx#:[id number] Intake, IV Titration 1238 100 Amount Empty Bag 1 bag In 138 Mannitol 20% Pmx 138 ml @ 276 mls/hr IV Q8H [facility] Rx #:[id number] Sodium Chloride 0.9% 1, 1100 100 000 ml @ 100 mls/hr IV . Q10H [facility] Rx#:[id number] Oral 0 Output: Urine 875 820 950 Other: Voiding Method Indwelling Catheter Indwelling Catheter Indwelling Catheter - Exam PHYSICAL EXAMINATION: Patient is lying in the bed . Trying to communicate but could not speak.. Able to open his eyes HEENT: Normocephalic. Neck is supple. Pupils reactive. Nostrils clear. Oral cavity is moist. Neck reveals no JVD, carotid bruits, or thyromegaly. CHEST EXAMINATION: Trachea is central. Symmetrical expansion. Lung estevez clear to auscultation and percussion. CARDIAC: Normal S1, S2 with no gallops. No murmurs ABDOMEN: Soft. Bowel sounds normal. No organomegaly. No abdominal bruits. Extremities: reveal no edema. No clubbing or cyanosis Neurologically Patient is awake alert but not oriented. Right-sided paralysis. mouth deviation. Skin: No rash or skin lesions. Psychiatric: Could not be assessed at this time. Musculoskeletal: No joint swelling or deformity. Normal range of motion. - Labs CBC & Chem 7: 01/24/21 04:42 01/24/21 04:42 Labs: Abnormal Lab Results - Last 24 Hours (Table) 01/22/21 01/22/21 01/22/21 Range/Units 06:56 06:56 06:56 WBC 18.3 H (3.8-10.6) k/uL Neutrophils # 15.9 H (1.3-7.7) k/uL Chloride 110 H (98-107) mmol/L Carbon Dioxide 17 L (22-30) mmol/L BUN 86 H (9-20) mg/dL Creatinine 3.73 H (0.66-1.25) mg/dL Glucose 135 H (74-99) mg/dL POC Glucose (mg/dL) (75-99) mg/dL Hemoglobin A1c 6.3 H (4.0-6.0) % 01/22/21 Range/Units 15:47 WBC (3.8-10.6) k/uL Neutrophils # (1.3-7.7) k/uL Chloride (98-107) mmol/L Carbon Dioxide (22-30) mmol/L BUN (9-20) mg/dL Creatinine (0.66-1.25) mg/dL Glucose (74-99) mg/dL POC Glucose (mg/dL) 119 H (75-99) mg/dL Hemoglobin A1c (4.0-6.0) % Assessment and Plan Assessment: Acute ischemic left MCA territory infarct with right-sided paralysis. Acute kidney injury with creatinine level 5.04. possible ATN Metabolic acidosis secondary to acute kidney injury Hypovolemic hyponatremia Hypertension. Currently hypotensive Coronary artery disease with history of stent placement in 2002 Previous history of smoking DVT prophylaxis with SCDs Plan: Patient will be carried on neurochecks. Stroke workup including MRI of the brain was done showed mass effect with 2.5 mm rightward shift,. Patient will be transferred to MICU for mannitol infusion and close monitoring and neuro checks. Carotid duplex showed no significant stenosis. Patient will be carried on aspirin and statins. 2-D echo cardiac exam showed his ejection fraction 50%. No evidence of shunt noted. A1c every 6.3. Speech and swallow evaluation and PT OT was consulted. Repeat CT head was ordered for tomorrow morning. Discussed with his at bedside in detail. Time with Patient: Greater than 30
--- NOTE | 2021-01-24 09:41 | P.PN ---
Subjective Progress Note Date: 01/23/21 Principal diagnosis: Acute ischemic CVA Patient is a 70-year-old male with a known history of hypertension, history of [place] and coronary artery disease with stent placement in 2002, previous history of smoking was brought to the hospital by family due to altered mental status. Johnny bui last known well at about 7 PM last night. Patient has been increasingly sleepy and found by family around 11 AM. He was not responding well due to altered mental status and could not communicate. Family also noticed that his right arm and leg are not moving. according to the family patient has not been feeling well for the past 1 month. He is increasingly weak and lethargic. Decrease of oral intake. Patient does not have any fever or chills. No cough or sputum production. No nausea vomiting or diarrhea. Currently patient is unable and mostly history was taken from the family at bedside. Patient was hypotensive with systolic pressure in the 80s and was given 2 L fluid bolus in the ER. CT head without contrast showed moderate to large left MCA territory acute to subacute infarct. No hemorrhagic transformation. Minimal 2 mm of rightward midline shift. Fluid in the left mastoid air cells possible mastoiditis. Chest x-ray showed limited portable chest. Hazy densities related to overlying soft tissue. No definite acute process. EKG showed normal sinus rhythm. Laboratory data showed WBC 16.8, hemoglobin 14.8 and platelets 439 Sodium 135 potassium 5.0 chloride 106 bicarb is 16 BUN 85 and creatinine 5.04, AST 27 ALT 32 and alk phos 146 UA is negative for infection. Pt. is in the telemetry unit. Patient's mental status and weakness. Able to open his eyes but could not communicate. The patient is more lethargic. MRI of the brain was done showed large area of abnormal increased signal involving the left MCA territory with mass effect on the lateral ventricle. 2 mm rightward midline shift. Neurology is following. Recommended to start on mannitol. Patient will be transferred to ICU for close monitoring. Laboratory data showed WBC 18.3, hemoglobin 14.0 and platelets 388 BUN 86 and creatinine 3.73. Improving renal function. LDL 101.8 and B12 749 and TSH 0.983 01/23/2021 Patient is currently in MICU. Mental condition remains the same. Able to open his eyes. Could not communicate. patient is weak and lethargic. Yesterday, I did Discuss with the transfer team and physician at [facility]. Patient is out of window for any surgical intervention including thrombectomy as per neurology. Patient is being continued on supportive care. Continue with aspirin and statins. Follow-up repeat CT scan is pending. Laboratory data showed WBC 16.2 hemoglobin 14.4 and platelets 393, sodium 147, chloride 1017, BUN 78 and creatinine 2.5 blood sugar is 141 Neurology and critical care team is on board. Complete review of systems could not be obtained from the patient. Objective - Vital Signs Vital signs: Vital Signs Temp 97.8 F 01/23/21 12:00 Pulse 97 01/23/21 12:00 Resp 23 01/23/21 12:00 BP 107/68 01/23/21 12:00 Pulse Ox 94 L 01/23/21 12:00 Intake & Output 01/22/21 01/23/21 01/23/21 18:59 06:59 18:59 Intake Total 1238 1476 600 Output Total 820 1980 690 Balance 418 -377 -66 Weight 92.8 kg Intake: IV 1376 600 Empty Bag 1 bag In 276 Mannitol 20% Pmx 138 ml @ 276 mls/hr IV Q8H [facility] Rx #:[id number] Sodium Chloride 0.9% 1, 1100 600 000 ml @ 100 mls/hr IV . Q10H [facility] Rx#:[id number] Intake, IV Titration 1238 100 Amount Empty Bag 1 bag In 138 Mannitol 20% Pmx 138 ml @ 276 mls/hr IV Q8H [facility] Rx #:[id number] Sodium Chloride 0.9% 1, 1100 100 000 ml @ 100 mls/hr IV . Q10H [facility] Rx#:[id number] Oral 0 Output: Urine 820 1980 690 Other: Voiding Method Indwelling Catheter Indwelling Catheter Indwelling Catheter - Exam PHYSICAL EXAMINATION: Patient is lying in the bed . Trying to communicate but could not speak.. Able to open his eyes HEENT: Normocephalic. Neck is supple. Pupils reactive. Nostrils clear. Oral cavity is moist. Neck reveals no JVD, carotid bruits, or thyromegaly. CHEST EXAMINATION: Trachea is central. Symmetrical expansion. Lung estevez clear to auscultation and percussion. CARDIAC: Normal S1, S2 with no gallops. No murmurs ABDOMEN: Soft. Bowel sounds normal. No organomegaly. No abdominal bruits. Extremities: reveal no edema. No clubbing or cyanosis Neurologically Patient is awake alert but not oriented. Right-sided paralysis. mouth deviation. Skin: No rash or skin lesions. Psychiatric: Could not be assessed at this time. Musculoskeletal: No joint swelling or deformity. Normal range of motion. - Labs CBC & Chem 7: 01/24/21 04:42 01/24/21 04:42 Labs: Abnormal Lab Results - Last 24 Hours (Table) 01/22/21 01/22/21 01/23/21 Range/Units 06:56 06:56 10:23 WBC 16.2 H (3.8-10.6) k/uL Neutrophils # 14.2 H (1.3-7.7) k/uL Lymphocytes # 0.9 L (1.0-4.8) k/uL Sodium (137-145) mmol/L Chloride (98-107) mmol/L Carbon Dioxide (22-30) mmol/L BUN (9-20) mg/dL Creatinine (0.66-1.25) mg/dL Glucose (74-99) mg/dL Hemoglobin A1c 6.3 H (4.0-6.0) % AST (17-59) U/L ALT (4-49) U/L Alkaline Phosphatase (38-126) U/L HDL Cholesterol 32.0 L (40.0-60.0) mg/dL 01/23/21 Range/Units 10:23 WBC (3.8-10.6) k/uL Neutrophils # (1.3-7.7) k/uL Lymphocytes # (1.0-4.8) k/uL Sodium 147 H (137-145) mmol/L Chloride 117 H (98-107) mmol/L Carbon Dioxide 19 L (22-30) mmol/L BUN 78 H (9-20) mg/dL Creatinine 2.50 H (0.66-1.25) mg/dL Glucose 141 H (74-99) mg/dL Hemoglobin A1c (4.0-6.0) % AST 216 H (17-59) U/L ALT 131 H (4-49) U/L Alkaline Phosphatase 166 H (38-126) U/L HDL Cholesterol (40.0-60.0) mg/dL Assessment and Plan Assessment: Acute ischemic left MCA territory infarct with right-sided paralysis. Acute kidney injury with creatinine level 5.04. Likely prerenal. possible ATN Metabolic acidosis secondary to acute kidney injury Hypovolemic hyponatremia Hypertension. Currently hypotensive Coronary artery disease with history of stent placement in 2002 Previous history of smoking DVT prophylaxis with SCDs Plan: Patient will be continued on neurochecks and supportive care. Stroke workup including MRI of the brain was done showed mass effect with 2.5 mm rightward shift,. Patient was transferred to MICU for mannitol infusion and close monitoring and neuro checks. Patient is not a candidate for surgical intervention as per neurology. Carotid duplex showed no significant stenosis. Patient will be continued on aspirin and statins. 2-D echo cardiac exam showed his ejection fraction 50%. No evidence of shunt noted. A1c every 6.3. Speech and swallow evaluation and PT OT was consulted. Repeat CT head ordered this morning. will discuss with family regarding CODE STATUS.. Time with Patient: Greater than 30
--- NOTE | 2021-01-24 10:04 | P.PN ---
Subjective Progress Note Date: 01/24/21 Principal diagnosis: Acute CVA involving the left MCA 70-year-old male who presented to the emergency department on 01/21/2021, at 1335. He apparently was noted to have mental status changes around 7:00 from the prior night. Apparently family members are was just sleeping deeply. The patient was evaluated, and was thought to have a ischemic stroke, involving the left middle cerebral artery. Currently, the patient is in the intensive care unit. He was transferred there because of a midline shift on a computed tomography scan. He is receiving mannitol, nasal O2 at 3 L, and saline at 100 mL an hour. He was admitted to the hospital service and he was consulted by neurology. Currently, the patient is responsive but very lethargic and somnolent. He does open his eyes. He does respond to verbal commands. He can move his left side. He does not move his right upper extremity at all. He has a right facial droop, he can flare his toes on his right foot. The patient apparently has a history of myocardial infarction, prior stent placement, hernia, chronic tobacco use, and hypertension. Home medications included that the tour, lisinopril, and atenolol. There were no ALLERGIES. White count 18.3, he will 14, hematocrit 41.7, and platelet count 388,000. PT, INR, and PTT are normal. Sodium is 138, potassium 5, chlorides 110, CO2 17, anion gap 11, with a BUN and creatinine of 86 and 3.73. Urine shows rare bacteria. Brain CT on admission shows moderate to large sized left MCA territory acute to subacute infarct. No hemorrhagic transformation. There is 2 mm a right which midline shift. No herniation. Chest x-ray shows no acute process. Carotid Doppler shows bilateral plaque formation and velocities are suggestive of less than 50% stenosis in both internal carotid arteries. Brain MRI shows large area of abnormal increased signal involving the left middle cerebral artery territory measuring 10.2 cm in AP dimension compatible with an acute CVA. There is mass effect upon the left lateral ventricle. 2.5 mm of rightward midline shift. No evidence of hemorrhagic transformation. The patient is seen today 01/23/2021 in follow-up in the intensive care unit. He is currently awake, weak. He is aphasic and has right hemiplegia. He was not a candidate for TPA or thrombectomy per neurology. MRI of the brain had revealed a large area of abnormal increased signal involving the left middle cerebral artery territory measuring 10.2 cm compatible with acute CVA. There is mass effect upon the lateral ventricle. 2.5 mm of rightward midline shift. No evidence of hemorrhage. He did receive mannitol. Remains on statins and aspirin. 0.9 normal saline at 100 ML's per hour. Follow-up CAT scan of the brain is pending. The patient is seen today 01/24/2021 in follow-up in the intensive care unit. He is currently resting in bed. He is maintaining O2 saturations in the 90s on 3 L/m per nasal cannula. His 0.9 normal saline at 100 ML's per hour. He remains somewhat obtunded. Arousable. Aphasic. Continues with right-sided weakness with a flaccid right upper extremity. Unable to swallow. Follow-up computed tomography scan of the brain revealed evolving left MCA territory infarct with greater degree of hypodensity. Infarct involves more than a third of the MCA territory. Greater degree of mass effect now with slight 4 mm of rightward midline shift and greater degree of partial flattening of the left lateral ventricle. No hemorrhagic transformation. Objective - Vital Signs Vital signs: Vital Signs Temp 98 F 01/24/21 00:00 Pulse 98 01/24/21 07:00 Resp 23 01/24/21 07:00 BP 92/56 01/24/21 07:00 Pulse Ox 96 01/24/21 07:00 Intake & Output 01/23/21 01/24/21 01/24/21 18:59 06:59 18:59 Intake Total 1300 1100 100 Output Total 1340 800 75 Balance -40 300 25 Weight 93.3 kg Intake: IV 1300 1100 100 Sodium Chloride 0.9% 1, 1300 1100 100 000 ml @ 100 mls/hr IV . Q10H [facility] Rx#:[id number] Output: Urine 1340 800 75 Other: Voiding Method Indwelling Catheter Indwelling Catheter - Exam 70-year-old gentleman. No acute distress, arousable, aphasic, currently on 3 L nasal cannula. HEENT examination is grossly unremarkable. Right-sided asymmetry Neck supple. Full range of motion. No adenopathy thyromegaly or neck vein distention. Cardiovascular examination reveals regular rhythm rate. S1-S2 normal. No S3 or S4. No discernible murmur noted. Heart rate 76 bpm. Lungs reveal scattered bilateral rhonchi. No wheezes or crackles. The patient is at high risk for aspiration. Abdomen soft bowel sounds are heard. No masses or tenderness. Extremities are intact. No cyanosis clubbing or edema. Skin is without rash or lesion. Neurologic examination reveals an awake somewhat lethargic, individual who does arouse and does respond to verbal stimuli. He can move his left side. He's a right facial droop. He has no movement in his right upper extremity. He can flare the toes of the right foot. - Labs CBC & Chem 7: 01/24/21 04:42 01/24/21 04:42 Labs: Abnormal Lab Results - Last 24 Hours (Table) 01/23/21 01/23/21 01/24/21 Range/Units 10:23 10:23 04:42 WBC 16.2 H 18.7 H (3.8-10.6) k/uL RBC 4.20 L (4.30-5.90) m/uL Neutrophils # 14.2 H 16.3 H (1.3-7.7) k/uL Lymphocytes # 0.9 L (1.0-4.8) k/uL Sodium 147 H (137-145) mmol/L Chloride 117 H (98-107) mmol/L Carbon Dioxide 19 L (22-30) mmol/L BUN 78 H (9-20) mg/dL Creatinine 2.50 H (0.66-1.25) mg/dL Glucose 141 H (74-99) mg/dL AST 216 H (17-59) U/L ALT 131 H (4-49) U/L Alkaline Phosphatase 166 H (38-126) U/L Albumin (3.5-5.0) g/dL 01/24/21 Range/Units 04:42 WBC (3.8-10.6) k/uL RBC (4.30-5.90) m/uL Neutrophils # (1.3-7.7) k/uL Lymphocytes # (1.0-4.8) k/uL Sodium 154 H (137-145) mmol/L Chloride 127 H (98-107) mmol/L Carbon Dioxide 18 L (22-30) mmol/L BUN 75 H (9-20) mg/dL Creatinine 2.30 H (0.66-1.25) mg/dL Glucose 150 H (74-99) mg/dL AST 112 H (17-59) U/L ALT 110 H (4-49) U/L Alkaline Phosphatase 154 H (38-126) U/L Albumin 3.3 L (3.5-5.0) g/dL Assessment and Plan Assessment: 1 Acute left MCA infarct, with midline shift, and with significant right sided weakness. Follow-up computed tomography scan of the brain 01/23/2021 reveals evolving left MCA infarct with a greater degree of hypodensity. Infarct involves more than a third of the MCA territory. Greater degree of mass effect now with slight 4 mm rightward midline shift and greater degree of partial flattening of the left lateral ventricle. No hemorrhagic transformation. 2 History of CAD, with previous myocardial infarction, and stent placement. 3 History of ongoing tobacco use until recently. 4 History of hypertension. 5 Acute kidney injury versus chronic kidney disease. Plan: The patient was seen and evaluated by Dr. Lyons Follow-up computed tomography scan of the brain reviewed Plan to have discussion with the patient's today Prognosis remains poor CODE STATUS to be addressed Nutritional support is to be addressed Remains nothing by mouth Aspiration precautions I, the cosigning physician, performed a history & physical examination of the patient. Lungs sounds with few scattered rhonchi. Maintaining good O2 saturations in the 90s on 3 L/m per nasal cannula I discussed the assessment and plan of care with my nurse practitioner, Che Salinas. I attest to the above note as dictated by her.
[2021-01-24] MEDS: DEXTROSE 5% IN WATER 1,000 ML IV SCH ×3 (11:58→23:01)
[2021-01-24] MEDS: INSULIN ASPART (NovoLOG) 100 UNIT/ML VIAL SQ SCH ×3 (12:00→19:37)
[2021-01-24 12:59] LABS: Glucose,Whole Blood 121 mg/dL (75-99)
--- NOTE | 2021-01-24 13:09 | P.CRDCN ---
History of Present Illness History of present illness: There is no cardiology consult for this patient Confirmed with the ICU nurse Past Medical History Past Medical History: Hypertension, Myocardial Infarction ([place]) Last Myocardial Infarction Date:: 2002 History of Any Multi-Drug Resistant Organisms: None Reported Past Surgical History: Heart Catheterization With Stent, Hernia Repair Past Anesthesia/Blood Transfusion Reactions: No Reported Reaction Date of Last Stent Placement:: 2002 Past Psychological History: No Psychological Hx Reported Smoking Status: Former smoker Additional Drug Use History / Comment(s): quit smoking 2 months ago; smoked pack/day - Past Family History Father Family Medical History: Myocardial Infarction ([place]) Mother Family Medical History: CVA/TIA Medications and Allergies Home Medications Medication Instructions Recorded Confirmed Type Atorvastatin Calcium [Lipitor] 20 mg PO DAILY 01/21/21 01/21/21 History Lisinopril [Prinivil] 10 mg PO DAILY 01/21/21 01/21/21 History atenoloL [Atenolol] 25 mg PO DAILY 01/21/21 01/21/21 History Allergies Allergy/AdvReac Type Severity Reaction Status Date / Time No Known Allergies Allergy Verified 01/21/21 17:06 Physical Exam Vitals: Vital Signs Temp Pulse Resp BP Pulse Ox 01/24/21 12:00 98.3 F 106 H 24 117/81 95 01/24/21 11:00 103 H 18 103/65 95 01/24/21 10:00 93 25 H 102/71 94 L 01/24/21 09:00 93 24 116/74 95 01/24/21 08:00 98.4 F 98 18 115/69 95 01/24/21 07:00 98 23 92/56 96 01/24/21 06:00 91 23 108/69 94 L 01/24/21 05:00 97 25 H 111/68 94 L 01/24/21 04:00 92 25 H 94/63 95 01/24/21 03:00 93 24 99/74 94 L 01/24/21 02:00 92 25 H 90/64 96 01/24/21 01:00 95 25 H 108/74 94 L 01/24/21 00:00 98 F 101 H 22 113/74 93 L 01/23/21 23:00 105 H 24 101/72 93 L 01/23/21 22:00 110 H 22 107/78 93 L 01/23/21 21:00 111 H 28 H 106/72 92 L 01/23/21 20:00 99.7 F H 117 H 27 H 112/70 92 L 01/23/21 19:00 123 H 30 H 95/63 91 L 01/23/21 18:00 122 H 25 H 108/70 91 L 01/23/21 17:00 115 H 24 92/76 91 L 01/23/21 16:00 98.1 F 110 H 26 H 113/79 90 L 01/23/21 15:00 109 H 26 H 114/74 93 L 01/23/21 14:00 104 H 25 H 109/71 93 L Intake and Output 01/23/21 01/24/21 01/24/21 22:59 06:59 14:59 Intake Total 800 800 600 Output Total 770 530 425 Balance 30 270 175 Intake: IV 800 800 600 Dextrose 5% in Water 1, 100 000 ml @ 100 mls/hr IV . Q10H [facility] Rx#:[id number] Sodium Chloride 0.9% 1, 800 800 500 000 ml @ 100 mls/hr IV . Q10H [facility] Rx#:[id number] Output: Urine 770 530 425 Other: Voiding Method Indwelling Catheter Indwelling Catheter Indwelling Catheter Weight 93.3 kg Results 01/24/21 04:42 01/24/21 04:42 Cardiac Enzymes 01/24/21 Range/Units 04:42 AST 112 H (17-59) U/L CBC 01/24/21 Range/Units 04:42 WBC 18.7 H (3.8-10.6) k/uL RBC 4.20 L (4.30-5.90) m/uL Hgb 13.3 (13.0-17.5) gm/dL Hct 40.9 (39.0-53.0) % Plt Count 365 (150-450) k/uL Comprehensive Metabolic Panel 01/24/21 Range/Units 04:42 Sodium 154 H (137-145) mmol/L Potassium 4.7 (3.5-5.1) mmol/L Chloride 127 H (98-107) mmol/L Carbon Dioxide 18 L (22-30) mmol/L BUN 75 H (9-20) mg/dL Creatinine 2.30 H (0.66-1.25) mg/dL Glucose 150 H (74-99) mg/dL Calcium 9.1 (8.4-10.2) mg/dL AST 112 H (17-59) U/L ALT 110 H (4-49) U/L Alkaline Phosphatase 154 H (38-126) U/L Total Protein 6.3 (6.3-8.2) g/dL Albumin 3.3 L (3.5-5.0) g/dL Current Medications Generic Name Dose Route Start Last Admin Trade Name Juanjose PRN Reason Stop Dose Admin Aspirin 300 mg 01/21/21 17:30 01/24/21 08:58 Aspirin 300 Mg Supp RECTAL 300 mg DAILY [facility] Administration Atorvastatin Calcium 20 mg 01/22/21 09:00 01/24/21 08:55 Atorvastatin 20 Mg Tab PO Not Given DAILY [facility] Dextrose/Water 1,000 mls @ 100 mls/hr 01/24/21 09:15 01/24/21 11:58 Dextrose 5%-Water Iv Soln IV 100 mls/hr .Q10H [facility] Administration Insulin Aspart 0 unit 01/24/21 09:15 01/24/21 12:00 Insulin Aspart (Novolog) 100 Unit/Ml Vial SQ Not Given Q6HR [facility] Protocol Intake and Output 01/23/21 01/24/21 01/24/21 22:59 06:59 14:59 Intake Total 800 800 600 Output Total 770 530 425 Balance 30 270 175 Intake: IV 800 800 600 Dextrose 5% in Water 1, 100 000 ml @ 100 mls/hr IV . Q10H [facility] Rx#:[id number] Sodium Chloride 0.9% 1, 800 800 500 000 ml @ 100 mls/hr IV . Q10H [facility] Rx#:[id number] Output: Urine 770 530 425 Other: Voiding Method Indwelling Catheter Indwelling Catheter Indwelling Catheter Weight 93.3 kg 01/24/21 04:42 01/24/21 04:42
--- NOTE | 2021-01-24 14:36 | P.PN ---
Subjective Progress Note Date: 01/24/21 Principal diagnosis: acute left middle cerebral artery infarct The patient is a 70-year-old male who is seen in neurologic follow-up on January 23, 2021, via teleneurology. The patient's history is reviewed. MRI and CT scan images are reviewed. The patient is seen in the intensive care unit. According to his nurse, the patient did receive mannitol. There has been no definitive change in his neurologic status. The patient was seen by speech therapy who felt the patient should remain nothing by mouth. He is at high risk for aspiration. The patient is seen in neurologic follow-up on January 24, 2021 via teleneurology. According to the patient's RN, he has followed some simple commands. She reports some visual tracking. The patient's family wishes to discuss prognosis. Objective - Vital Signs Vital signs: Vital Signs Temp 98 F 01/24/21 00:00 Pulse 98 01/24/21 07:00 Resp 23 01/24/21 07:00 BP 92/56 01/24/21 07:00 Pulse Ox 96 01/24/21 07:00 Intake & Output 01/23/21 01/24/21 01/24/21 18:59 06:59 18:59 Intake Total 1300 1100 100 Output Total 1340 800 75 Balance -40 300 25 Weight 93.3 kg Intake: IV 1300 1100 100 Sodium Chloride 0.9% 1, 1300 1100 100 000 ml @ 100 mls/hr IV . Q10H [facility] Rx#:[id number] Output: Urine 1340 800 75 Other: Voiding Method Indwelling Catheter Indwelling Catheter - Exam Gen.: The patient is reclining in the bed. He has 2 L O2 via nasal cannula. He is in no acute distress. HEENT: Head is atraumatic, normocephalic. Fundus not visualized. There is no scleral icterus. Mucous membranes are dry. Neck: Supple without carotid bruits Heart: Regular rate and rhythm Neurological examination Mental status: The patient does open his eyes to his name. There is some spontaneous movement of the left upper extremity. The patient is nonverbal. He follows no commands. Cranial nerves: Pupils are equal at 5 mm and briskly reactive. There a mild le ft gaze preference. Likely, right visual field deficit. There is a right facial droop. Gag reflex is present. Motor: Right upper and lower extremities are flaccid. There is some movement of the left upper extremity. Muscle strength testing cannot be carried out secondary to comprehension. Sensation: The patient does localize and grimace in response to noxious stimulation of the right upper and left upper and lower extremities. There is no withdrawal. Deep tendon reflexes: 1+/4+ in the left upper extremity. Left lower extremity reflexes are absent. Right-sided reflexes 2+/4+. Repeat CT scan of the brain was performed January 23, 2021. There is no evidence of hemorrhage. There is no evidence of herniation. CT scan reports mild increase in midline shift, with increased compression of the left lateral ventricle.. - Labs CBC & Chem 7: 01/24/21 04:42 01/24/21 04:42 Labs: Abnormal Lab Results - Last 24 Hours (Table) 01/23/21 01/23/21 01/24/21 Range/Units 10:23 10:23 04:42 WBC 16.2 H 18.7 H (3.8-10.6) k/uL RBC 4.20 L (4.30-5.90) m/uL Neutrophils # 14.2 H 16.3 H (1.3-7.7) k/uL Lymphocytes # 0.9 L (1.0-4.8) k/uL Sodium 147 H (137-145) mmol/L Chloride 117 H (98-107) mmol/L Carbon Dioxide 19 L (22-30) mmol/L BUN 78 H (9-20) mg/dL Creatinine 2.50 H (0.66-1.25) mg/dL Glucose 141 H (74-99) mg/dL AST 216 H (17-59) U/L ALT 131 H (4-49) U/L Alkaline Phosphatase 166 H (38-126) U/L Albumin (3.5-5.0) g/dL 01/24/21 Range/Units 04:42 WBC (3.8-10.6) k/uL RBC (4.30-5.90) m/uL Neutrophils # (1.3-7.7) k/uL Lymphocytes # (1.0-4.8) k/uL Sodium 154 H (137-145) mmol/L Chloride 127 H (98-107) mmol/L Carbon Dioxide 18 L (22-30) mmol/L BUN 75 H (9-20) mg/dL Creatinine 2.30 H (0.66-1.25) mg/dL Glucose 150 H (74-99) mg/dL AST 112 H (17-59) U/L ALT 110 H (4-49) U/L Alkaline Phosphatase 154 H (38-126) U/L Albumin 3.3 L (3.5-5.0) g/dL Assessment and Plan Assessment: 1. Large left middle cerebral artery infarct with compression of the left lateral ventricle and midline shift-prognosis guarded 2. Carotid Doppler reports proximal left ICA plaque 3. 2-D echocardiogram reveals no significant findings. I am unable to determine if this study was performed with saline 4. Acute kidney injury 5. History of coronary artery disease 6. History of hypertension Plan: 1. Continue to closely monitor neurologic status 2. Discussed status with the patient's and daughter-advised that the patient is likely suffering from both expressive and receptive aphasia, there fore rehabilitation will be more difficult. I also advised that he will unlikely be able to swallow and so a PEG tube would be needed for nutrition. I advised that he felt his prognosis is poor 3. Continue supportive care Time with Patient: Greater than 30 (spent 35 minutes with patient and family via teleneurology)
[2021-01-24] MEDS ORDERED: DILTIAZEM DRIP BOLUS FROM BAG 1 MG SOLN IV ONE (15:54)
[2021-01-24] MEDS: DILTIAZEM 125 MG in SODIUM CHLORIDE 0.9% 100 ML IV SCH (16:07)
[2021-01-24 18:53] LABS: Glucose,Whole Blood 126 mg/dL (75-99)
--- NOTE | 2021-01-24 19:09 | P.PN ---
Subjective Progress Note Date: 01/24/21 Principal diagnosis: Acute ischemic CVA Patient is a 70-year-old male with a known history of hypertension, history of MT and coronary artery disease with stent placement in 2002, previous history of smoking was brought to the hospital by family due to altered mental status. Johnny bui last known well at about 7 PM last night. Patient has been increasingly sleepy and found by family around 11 AM. He was not responding well due to altered mental status and could not communicate. Family also noticed that his right arm and leg are not moving. according to the family patient has not been feeling well for the past 1 month. He is increasingly weak and lethargic. Decrease of oral intake. Patient does not have any fever or chills. No cough or sputum production. No nausea vomiting or diarrhea. Currently patient is unable and mostly history was taken from the family at bedside. Patient was hypotensive with systolic pressure in the 80s and was given 2 L fluid bolus in the ER. CT head without contrast showed moderate to large left MCA territory acute to subacute infarct. No hemorrhagic transformation. Minimal 2 mm of rightward midline shift. Fluid in the left mastoid air cells possible mastoiditis. Chest x-ray showed limited portable chest. Hazy densities related to overlying soft tissue. No definite acute process. EKG showed normal sinus rhythm. Laboratory data showed WBC 16.8, hemoglobin 14.8 and platelets 439 Sodium 135 potassium 5.0 chloride 106 bicarb is 16 BUN 85 and creatinine 5.04, AST 27 ALT 32 and alk phos 146 UA is negative for infection. Pt. is in the telemetry unit. Patient's mental status and weakness. Able to open his eyes but could not communicate. The patient is more lethargic. MRI of the brain was done showed large area of abnormal increased signal involving the left MCA territory with mass effect on the lateral ventricle. 2 mm rightward midline shift. Neurology is following. Recommended to start on mannitol. Patient will be transferred to ICU for close monitoring. Laboratory data showed WBC 18.3, hemoglobin 14.0 and platelets 388 BUN 86 and creatinine 3.73. Improving renal function. LDL 101.8 and B12 749 and TSH 0.983 01/23/2021 Patient is currently in MICU. Mental condition remains the same. Able to open his eyes. Could not communicate. patient is weak and lethargic. Yesterday, I did Discuss with the transfer team and physician at [facility]. Patient is out of window for any surgical intervention including thrombectomy as per neurology. Patient is being continued on supportive care. Continue with aspirin and statins. Follow-up repeat CT scan is pending. Laboratory data showed WBC 16.2 hemoglobin 14.4 and platelets 393, sodium 147, chloride 1017, BUN 78 and creatinine 2.5 blood sugar is 141 Neurology and critical care team is on board. 01/24/2021 Patient is lying in the bed. Awake and alert. Able to open his eyes and moves his head slightly with verbal commands. Unable to swallow. Could not be able to recognize family. Does have the cough and unable to clear secretions in the throat. Patient has been afebrile. Follow-up CT on 01/23/2021 showed evolving left MCA infarct with greater degree of hypodensity. Discussed with his at bedside in detail. Family is considering comfort care at this time but would finalize decision after discussing with his for sons . Current CODE STATUS is DO NOT RESUSCITATE/DO NOT INTUBATE. Laboratory data showed worsening WBC count 18.7 and hemoglobin 13.3 and platelets 365 Sodium 134 potassium 4.7 BUN 75 and creatinine 2.3. IV fluids changed to D5 water. Complete review of systems could not be obtained from the patient. Objective - Vital Signs Vital signs: Vital Signs Temp 98 F 01/24/21 00:00 Pulse 98 01/24/21 07:00 Resp 23 01/24/21 07:00 BP 92/56 01/24/21 07:00 Pulse Ox 96 01/24/21 07:00 Intake & Output 01/23/21 01/24/21 01/24/21 18:59 06:59 18:59 Intake Total 1300 1100 100 Output Total 1340 800 75 Balance -40 300 25 Weight 93.3 kg Intake: IV 1300 1100 100 Sodium Chloride 0.9% 1, 1300 1100 100 000 ml @ 100 mls/hr IV . Q10H [facility] Rx#:[id number] Output: Urine 1340 800 75 Other: Voiding Method Indwelling Catheter Indwelling Catheter - Exam PHYSICAL EXAMINATION: Patient is lying in the bed . Unable to make it. Able to open his eyes, lethargic and obtunded. HEENT: Normocephalic. Neck is supple. Pupils reactive. Nostrils clear. Oral cavity is moist. Neck reveals no JVD, carotid bruits, or thyromegaly. CHEST EXAMINATION: Trachea is central. Symmetrical expansion. Lung estevez clear to auscultation and percussion. CARDIAC: Normal S1, S2 with no gallops. No murmurs ABDOMEN: Soft. Bowel sounds normal. No organomegaly. No abdominal bruits. Extremities: reveal no edema. No clubbing or cyanosis Neurologically Patient is awake alert but not oriented. Right-sided paralysis. mouth deviation. Skin: No rash or skin lesions. Psychiatric: Could not be assessed at this time. Musculoskeletal: No joint swelling or deformity. Normal range of motion. - Labs CBC & Chem 7: 01/24/21 04:42 01/24/21 04:42 Labs: Abnormal Lab Results - Last 24 Hours (Table) 01/23/21 01/23/21 01/24/21 Range/Units 10:23 10:23 04:42 WBC 16.2 H 18.7 H (3.8-10.6) k/uL RBC 4.20 L (4.30-5.90) m/uL Neutrophils # 14.2 H 16.3 H (1.3-7.7) k/uL Lymphocytes # 0.9 L (1.0-4.8) k/uL Sodium 147 H (137-145) mmol/L Chloride 117 H (98-107) mmol/L Carbon Dioxide 19 L (22-30) mmol/L BUN 78 H (9-20) mg/dL Creatinine 2.50 H (0.66-1.25) mg/dL Glucose 141 H (74-99) mg/dL AST 216 H (17-59) U/L ALT 131 H (4-49) U/L Alkaline Phosphatase 166 H (38-126) U/L Albumin (3.5-5.0) g/dL 01/24/21 Range/Units 04:42 WBC (3.8-10.6) k/uL RBC (4.30-5.90) m/uL Neutrophils # (1.3-7.7) k/uL Lymphocytes # (1.0-4.8) k/uL Sodium 154 H (137-145) mmol/L Chloride 127 H (98-107) mmol/L Carbon Dioxide 18 L (22-30) mmol/L BUN 75 H (9-20) mg/dL Creatinine 2.30 H (0.66-1.25) mg/dL Glucose 150 H (74-99) mg/dL AST 112 H (17-59) U/L ALT 110 H (4-49) U/L Alkaline Phosphatase 154 H (38-126) U/L Albumin 3.3 L (3.5-5.0) g/dL Assessment and Plan Assessment: Acute ischemic left MCA territory infarct with right-sided paralysis. Repeat CT showed evolving stroke. Acute kidney injury with creatinine level 5.04. Likely prerenal. possible ATN Metabolic acidosis secondary to acute kidney injury Hypovolemic hyponatremia Hypertension. Currently hypotensive Coronary artery disease with history of stent placement in 2002 Previous history of smoking DVT prophylaxis with SCDs Plan: Patient will be continued on neurochecks and supportive care. Stroke workup including MRI of the brain was done showed mass effect with 2.5 mm rightward shift,. Patient was transferred to MICU for mannitol infusion and close monitoring and neuro checks. Patient is not a candidate for surgical i ntervention as per neurology. Carotid duplex showed no significant stenosis. Patient will be continued on aspirin and statins. 2-D echo cardiac exam showed his ejection fraction 50%. No evidence of shunt noted. A1c every 6.3. Speech and swallow evaluation and PT OT was consulted. Repeat CT head showed evolving CVA.. CODE STATUS is DO NOT RESUSCITATE/DO NOT INTUBATE. Family is considering comfo rt care.. Time with Patient: Greater than 30
[2021-01-25 00:16] LABS: Glucose,Whole Blood 128 mg/dL (75-99)
[2021-01-25] MEDS: INSULIN ASPART (NovoLOG) 100 UNIT/ML VIAL SQ SCH ×4 (00:17→18:17)
[2021-01-25] MEDS: DILTIAZEM 125 MG in SODIUM CHLORIDE 0.9% 100 ML IV SCH ×2 (02:10→14:48)
[2021-01-25 06:28] LABS: Glucose,Whole Blood 138 mg/dL (75-99)
[2021-01-25] MEDS: DEXTROSE 5% IN WATER 1,000 ML IV SCH (09:23)
[2021-01-25] MEDS: ATORVASTATIN 20 MG TAB PO SCH (09:24)
[2021-01-25 10:32] VITALS: RESP 20
--- NOTE | 2021-01-25 12:12 | CT ---
EXAMINATION TYPE: CT brain wo con DATE OF EXAM: 01/25/2021 COMPARISON: 01/23/2021 HISTORY: 70-year-old male stroke, Assess stroke evolution. TECHNIQUE: Examination was done in axial plane without intravenous contrast. Coronal and sagittal r econstructions performed. CT DLP: 1182.4 mGycm Automated exposure control for dose reduction was used. FINDINGS: Redemonstrated large left MCA territory infarct. Continued extensive cortical and subcortical hypoden sity here with sulcal effacement and regional mass effect partially flattening the left lateral ventr icle. The degree of mass effect is slightly greater now with 4.5 mm of rightward midline shift versus 3.5 mm, previously. No herniation. Stable mild ventriculomegaly of the right lateral ventricle likely due to some compone nt of central cerebral atrophy. No effacement of basal subarachnoid cisterns. No extra-axial fluid co llection or acute intracranial hemorrhage. Leftward nasal septal deviation. Trace mucosal thickening ethmoid air cells. Continued opacification left mastoid air cells. IMPRESSION: 1. Redemonstrated sizable left MCA territory infarct with continued cortical and subcortical hypodens ity. Minimal increased edema and mass effect now with 4.5 mm of rightward midline shift versus 3.5 mm , previously. 2. No herniation or acute intracranial hemorrhage.
--- NOTE | 2021-01-25 12:20 | P.PN ---
Subjective Progress Note Date: 01/25/21 Principal diagnosis: CVA. Acute CVA involving the left MCA 70-year-old male who presented to the emergency department on 01/21/2021, at 1335. He apparently was noted to have mental status changes around 7:00 from the prior night. Apparently family members are was just sleeping deeply. The patient was evaluated, and was thought to have a ischemic stroke, involving the left middle cerebral artery. Currently, the patient is in the intensive care unit. He was transferred there because of a midline shift on a computed tomography scan. He is receiving mannitol, nasal O2 at 3 L, and saline at 100 mL an hour. He was admitted to the hospital service and he was consulted by neurology. Currently, the patient is responsive but very lethargic and somnolent. He does open his eyes. He does respond to verbal commands. He can move his left side. He does not move his right upper extremity at all. He has a right facial droop, he can flare his toes on his right foot. The patient apparently has a history of myocardial infarction, prior stent placement, hernia, chronic tobacco use, and hypertension. Home medications included that the tour, lisinopril, and atenolol. There were no ALLERGIES. White count 18.3, he will 14, hematocrit 41.7, and platelet count 388,000. PT, INR, and PTT are normal. Sodium is 138, potassium 5, chlorides 110, CO2 17, anion gap 11, with a BUN and creatinine of 86 and 3.73. Urine shows rare bacteria. Brain CT on admission shows moderate to large sized left MCA territory acute to subacute infarct. No hemorrhagic transformation. There is 2 mm a right which midline shift. No herniation. Chest x-ray shows no acute process. Carotid Doppler shows bilateral plaque formation and velocities are suggestive of less than 50% stenosis in both internal carotid arteries. Brain MRI shows large area of abnormal increased signal involving the left middle cerebral artery territory measuring 10.2 cm in AP dimension compatible with an acute CVA. There is mass effect upon the left lateral ventricle. 2.5 mm of rightward midline shift. No evidence of hemorrhagic transformation. The patient is seen today 01/23/2021 in follow-up in the intensive care unit. He is currently awake, weak. He is aphasic and has right hemiplegia. He was not a candidate for TPA or thrombectomy per neurology. MRI of the brain had revealed a large area of abnormal increased signal involving the left middle cerebral artery territory measuring 10.2 cm compatible with acute CVA. There is mass effect upon the lateral ventricle. 2.5 mm of rightward midline shift. No evidence of hemorrhage. He did receive mannitol. Remains on statins and aspirin. 0.9 normal saline at 100 ML's per hour. Follow-up CAT scan of the brain is pending. The patient is seen today 01/24/2021 in follow-up in the intensive care unit. He is currently resting in bed. He is maintaining O2 saturations in the 90s on 3 L/m per nasal cannula. His 0.9 normal saline at 100 ML's per hour. He remains somewhat obtunded. Arousable. Aphasic. Continues with right-sided wea kness with a flaccid right upper extremity. Unable to swallow. Follow-up computed tomography scan of the brain revealed evolving left MCA territory infarct with greater degree of hypodensity. Infarct involves more than a third of the MCA territory. Greater degree of mass effect now with slight 4 mm of rightward midline shift and greater degree of partial flattening of the left lateral ventricle. No hemorrhagic transformation. Progress note dated 01/25/2021. 70-year-old gentleman, who is again seen in the hospital. He was transferred out of the ICU, to room 377. Currently, he's on a couple liters of oxygen. In addition, he is on Cardizem drip at 10 mg an hour. We are long conversation with the , and the niece yesterday. The niece is a nurse at this hospital. The patient's overall prognosis is not good. He is a no code now. No new labs for today other than a glucose of 138. A repeat computed tomography scan of the brain shows a sizable left MCA territory infarct with continued cortical and subcortical hypodensity. There is minimal increase edema and mass effect now, with 4.5 mm right with the line shift versus 3.5 mm previously. No herniation or acute intracranial hemorrhage. Objective - Vital Signs Vital signs: Vital Signs Temp 98.8 F 01/25/21 08:00 Pulse 101 H 01/25/21 08:00 Resp 20 01/25/21 08:00 BP 111/64 01/25/21 08:00 Pulse Ox 95 01/25/21 08:24 Intake & Output 01/24/21 01/25/21 01/25/21 18:59 06:59 18:59 Intake Total 600 100.5 Output Total 425 1040 Balance 175 -939.5 Weight 95.5 kg Intake: IV 600 Dextrose 5% in Water 1, 100 000 ml @ 100 mls/hr IV . Q10H [facility] Rx#:[id number] Sodium Chloride 0.9% 1, 500 000 ml @ 100 mls/hr IV . Q10H [facility]SY Rx#:[id number] Intake, IV Titration 100.5 Amount Diltiazem 125 mg In 100.5 Sodium Chloride 0.9% 100 ml @ 10 MG/HR 10 mls/hr IV .[id number] S[facility]SY Rx#: [id number] Output: Urine 425 1040 Other: Voiding Method Indwelling Catheter Indwelling Catheter Indwelling Catheter # Bowel Movements 1 - Exam 70-year-old gentleman. No acute distress, arousable, aphasic, currently on 2 L nasal cannula. HEENT examination is grossly unremarkable. Right-sided asymmetry Neck supple. Full range of motion. No adenopathy thyromegaly or neck vein distention. Cardiovascular examination reveals an irregular rhythm and rate. S1-S2 normal. No S3 or S4. No discernible murmur noted. Heart rate 101 bpm. Lungs reveal scattered bilateral rhonchi. No wheezes or crackles. The patient is at high risk for aspiration. Abdomen soft bowel sounds are heard. No masses or tenderness. Extremities are intact. No cyanosis clubbing or edema. Skin is without rash or lesion. Neurologic examination reveals an semi-awake somewhat lethargic, individual who does arouse and does respond to verbal stimuli. He can move his left side. He's a right facial droop. He has no movement in his right upper extremity. He can flare the toes of the right foot. - Labs CBC & Chem 7: 01/24/21 04:42 01/24/21 04:42 Labs: Abnormal Lab Results - Last 24 Hours (Table) 01/24/21 01/24/21 01/25/21 Range/Units 12:57 18:51 00:15 POC Glucose (mg/dL) 121 H 126 H 128 H (75-99) mg/dL 01/25/21 Range/Units 06:09 POC Glucose (mg/dL) 138 H (75-99) mg/dL Assessment and Plan Assessment: Acute left MCA infarct, with midline shift, and with significant right sided weakness. History of CAD, with previous myocardial infarction, and stent placement. History of ongoing tobacco use until recently. History of hypertension. Acute kidney injury versus chronic kidney disease. Plan: Plan dated 01/22/2021. Apparently the neurology services wanted the patient transferred to [facility]. For some reason, the refused. The patient is a full code. The patient is receiving nasal O2, saline, and also mannitol. In addition, orders for aspirin, Lipitor, and Zofran are noted. The patient should have nothing by mouth at this time. I believe he is at high risk for aspiration. Additional recommendations and suggestions are forthcoming. I've asked the ICU nurse to contact the hospital service, and begin the transfer process. I did speak to some family members in the waiting room. Plan dated 01/25/2021. The patient currently is doing worse. His more midline shift. The patient's on 2 L. He has not been made a no code. I think that his right decision. We will see the patient moving forward, only as needed. The patient is at high risk for aspiration. The patient should never be flat in bed. Time with Patient: Less than 30
[2021-01-25 12:45] LABS: Glucose,Whole Blood 150 mg/dL (75-99)
--- NOTE | 2021-01-25 13:07 | P.PN ---
Subjective Progress Note Date: 01/25/21 On seeing the patient for the first time. Please refer to Dr. Serna and Dr. Everett's note for further neurological detail of history and their assessment and plan. Upon seeing the patient bedside he is accompanied by his his son and his [id number]. Per the patient's nurse there has not been any improvement in the patient's condition. Also the patient continues not to be able to swallow. Objective - Vital Signs Vital signs: Vital Signs Temp 100.7 F H 01/25/21 12:00 Pulse 113 H 01/25/21 12:00 Resp 20 01/25/21 12:00 BP 118/70 01/25/21 12:00 Pulse Ox 94 L 01/25/21 12:00 Intake & Output 01/24/21 01/25/21 01/25/21 18:59 06:59 18:59 Intake Total 600 100.5 900 Output Total 425 1040 Balance 175 -939.5 900 Weight 95.5 kg Intake: IV 600 900 Dextrose 5% in Water 1, 100 900 000 ml @ 100 mls/hr IV . Q10H [facility]ISSY Rx#:[id number] Sodium Chloride 0.9% 1, 500 000 ml @ 100 mls/hr IV . Q10H SISSY Rx#:[id number] Intake, IV Titration 100.5 Amount Diltiazem 125 mg In 100.5 Sodium Chloride 0.9% 100 ml @ 10 MG/HR 10 mls/hr IV .[id number] SISSY Rx#: [id number] Output: Urine 425 1040 Other: Voiding Method Indwelling Catheter Indwelling Catheter Indwelling Catheter # Bowel Movements 1 - Exam Gen.: The patient is reclining in the bed. He has 2 L O2 via nasal cannula. He is in no acute distress. Neurological examination Mental status: The patient does open his eyes to his name but not verbally responsive and does not follow commands. There is some spontaneous movement of the left hand. Upon asking him to show me a thumbs up he was attempting to move the thumb and was squeezing hand on the left to command. Is aphasic. Cranial nerves: Pupils are equal at 5 mm and briskly reactive. The primary gaze is midline. Could not assess visual field because of his condition. There is a right facial droop. Gag reflex is present. Motor: Right upper and lower extremities are flaccid. There is some movement of the left upper extremity and very briefly was able to lift up arm above gravity. Muscle strength testing cannot be carried out secondary to comprehension. Sensation: The patient does localize and grimace in response to noxious stimulation of the right upper and left upper and lower extremities. There is no withdrawal. Deep tendon reflexes: 1+/4+ in the left upper extremity. Left lower extremity reflexes are absent. Right-sided reflexes 2+/4+. IMAGING: CT of the head the repeat was ordered by me to see if there is any evolution of his large MCA stroke and it's reported as redemonstrated sizable left MCA territory infarct with continued cortical and subcortical hypodensity. Minimal increased edema and mass effect now with 4.5 mm of rightward midline shift versus 3.5 mm previously. No herniation or acute intracranial hemorrhage. - Labs CBC & Chem 7: 01/24/21 04:42 01/24/21 04:42 Labs: Abnormal Lab Results - Last 24 Hours (Table) 01/24/21 01/24/21 01/25/21 Range/Units 12:57 18:51 00:15 POC Glucose (mg/dL) 121 H 126 H 128 H (75-99) mg/dL 01/25/21 01/25/21 Range/Units 06:09 12:42 POC Glucose (mg/dL) 138 H 150 H (75-99) mg/dL Assessment and Plan Assessment: 1. Large left middle cerebral artery infarct with compression of the left lateral ventricle and midline shift (with current CT head: Minimal increased edema and mass effect now with 4.5 mm of rightward midline shift versus 3.5 mm previously) 2. Dysphagia due to above. 3. Cytotoxic edema due to #1 4. Carotid Doppler reports proximal left ICA plaque 5. Hypernatremia due to medication effect 6. Acute kidney injury--improving 7. Eleavated LFT's--trending down 8. History of coronary artery disease 9. History of hypertension Plan: Currently the patient is on aspirin 300 mg rectally and Lipitor 20 mg daily but he's not getting any by mouth medications since that he has dysphagia. I spoke with the patient's family his and his son) and showed them the curr ent CT head image. Family decided that the D do not want that patient to have a PEG tube. They want the patient to be comfort care. The plan is discussed with the patient's nurse who was present during my meeting with the family. Carl Lyons MD Neuro-Hospitalist Time with Patient: Less than 30
[2021-01-25] MEDS: ASPIRIN 300 MG SUPP RECTAL SCH (14:49)
[2021-01-25 16:14] VITALS: BP 115/64; PULSE 117; TEMP 100.5
[2021-01-25 17:20] LABS: Glucose,Whole Blood 150 mg/dL (75-99)
--- NOTE | 2021-01-26 22:31 | P.PN ---
Subjective Progress Note Date: 01/25/21 Principal diagnosis: Acute ischemic CVA Patient is a 70-year-old male with a known history of hypertension, history of [place] and coronary artery disease with stent placement in 2002, previous history of smoking was brought to the hospital by family due to altered mental status. Johnny bui last known well at about 7 PM last night. Patient has been increasingly sleepy and found by family around 11 AM. He was not responding well due to altered mental status and could not communicate. Family also noticed that his right arm and leg are not moving. according to the family patient has not been feeling well for the past 1 month. He is increasingly weak and lethargic. Decrease of oral intake. Patient does not have any fever or chills. No cough or sputum production. No nausea vomiting or diarrhea. Currently patient is unable and mostly history was taken from the family at bedside. Patient was hypotensive with systolic pressure in the 80s and was given 2 L fluid bolus in the ER. CT head without contrast showed moderate to large left MCA territory acute to subacute infarct. No hemorrhagic transformation. Minimal 2 mm of rightward midline shift. Fluid in the left mastoid air cells possible mastoiditis. Chest x-ray showed limited portable chest. Hazy densities related to overlying soft tissue. No definite acute process. EKG showed normal sinus rhythm. Laboratory data showed WBC 16.8, hemoglobin 14.8 and platelets 439 Sodium 135 potassium 5.0 chloride 106 bicarb is 16 BUN 85 and creatinine 5.04, AST 27 ALT 32 and alk phos 146 UA is negative for infection. Pt. is in the telemetry unit. Patient's mental status and weakness. Able to open his eyes but could not communicate. The patient is more lethargic. MRI of the brain was done showed large area of abnormal increased signal involving the left MCA territory with mass effect on the lateral ventricle. 2 mm rightward midline shift. Neurology is following. Recommended to start on mannitol. Patient will be transferred to ICU for close monitoring. Laboratory data showed WBC 18.3, hemoglobin 14.0 and platelets 388 BUN 86 and creatinine 3.73. Improving renal function. LDL 101.8 and B12 749 and TSH 0.983 01/23/2021 Patient is currently in MICU. Mental condition remains the same. Able to open his eyes. Could not communicate. patient is weak and lethargic. Yesterday, I did Discuss with the transfer team and physician at . Patient is out of window for any surgical intervention including thrombectomy as per neurology. Patient is being continued on supportive care. Continue with aspirin and statins. Follow-up repeat CT scan is pending. Laboratory data showed WBC 16.2 hemoglobin 14.4 and platelets 393, sodium 147, chloride 1017, BUN 78 and creatinine 2.5 blood sugar is 141 Neurology and critical care team is on board. 01/24/2021 Patient is lying in the bed. Awake and alert. Able to open his eyes and moves his head slightly with verbal commands. Unable to swallow. Could not be able to recognize family. Does have the cough and unable to clear secretions in the throat. Patient has been afebrile. Follow-up CT on 01/23/2021 showed evolving left MCA infarct with greater degree of hypodensity. Discussed with his at bedside in detail. Family is considering comfort care at this time but would finalize decision after discussing with his for sons . Current CODE STATUS is DO NOT RESUSCITATE/DO NOT INTUBATE. Laboratory data showed worsening WBC count 18.7 and hemoglobin 13.3 and platelets 365 Sodium 134 potassium 4.7 BUN 75 and creatinine 2.3. IV fluids changed to D5 water. 01/25/2021 Patient is currently lying in the bed. No improvement in mental status. Patient is not able to swallow . Patient went into atrial fibrillation with rapid lower rate and Cardizem drip was started. Due to evolving acute massive CVA and other multiple comorbid conditions family would like to go for hospice care at this time. Complete review of systems could not be obtained from the patient. Objective - Vital Signs Vital signs: Vital Signs Temp 100.5 F H 01/25/21 16:00 Pulse 117 H 01/25/21 16:00 Resp 20 01/25/21 16:00 BP 115/64 01/25/21 16:00 Pulse Ox 93 L 01/25/21 16:00 Intake & Output 01/24/21 01/25/21 01/25/21 18:59 06:59 18:59 Intake Total 600 100.5 1025 Output Total 425 1040 Balance 175 -939.5 1025 Weight 95.5 kg Intake: IV 600 900 Dextrose 5% in Water 1, 100 900 000 ml @ 100 mls/hr IV . Q10H [facility] Rx#:[id number] Sodium Chloride 0.9% 1, 500 000 ml @ 100 mls/hr IV . Q10H [facility] Rx#:[id number] Intake, IV Titration 100.5 125 Amount Diltiazem 125 mg In 100.5 125 Sodium Chloride 0.9% 100 ml @ 10 MG/HR 10 mls/hr IV .[id number] [facility] Rx#: [id number] Output: Urine 425 1040 Other: Voiding Method Indwelling Catheter Indwelling Catheter Indwelling Catheter # Bowel Movements 1 - Exam PHYSICAL EXAMINATION: Patient is lying in the bed , Able to open his eyes, lethargic and obtunded. HEENT: Normocephalic. Neck is supple. Pupils reactive. Nostrils clear. Oral cavity is moist. Neck reveals no JVD, carotid bruits, or thyromegaly. CHEST EXAMINATION: Trachea is central. Bibasilar diminished sounds.. CARDIAC: Normal S1, S2 with no gallops. No murmurs ABDOMEN: Soft. Bowel sounds present. Extremities: reveal no edema. No clubbing or cyanosis Neurologically Patient is awake alert but not oriented. Right-sided paralysis. mouth deviation. Skin: No rash or skin lesions. Psychiatric: Could not be assessed at this time. Musculoskeletal: No joint swelling or deformity. - Labs CBC & Chem 7: 01/24/21 04:42 01/24/21 04:42 Labs: Abnormal Lab Results - Last 24 Hours (Table) 01/24/21 01/25/21 01/25/21 Range/Units 18:51 00:15 06:09 POC Glucose (mg/dL) 126 H 128 H 138 H (75-99) mg/dL 01/25/21 01/25/21 Range/Units 12:42 17:18 POC Glucose (mg/dL) 150 H 150 H (75-99) mg/dL Assessment and Plan Assessment: Acute ischemic left MCA territory infarct with right-sided paralysis. Repeat CT showed evolving stroke. Acute kidney injury with creatinine level 5.04. Likely prerenal. possible ATN Metabolic acidosis secondary to acute kidney injury New onset atrial fibrillation with rapid regular rate Hypovolemic hyponatremia Hypertension. Currently hypotensive Coronary artery disease with history of stent placement in 2002 Previous history of smoking DVT prophylaxis with SCDs Plan: Patient will be continued on neurochecks and supportive care. Stroke workup including MRI of the brain was done showed mass effect with 2.5 mm rightward shift,. Patient was transferred to MICU for mannitol infusion and close monitoring and neuro checks. Patient is not a candidate for surgical intervention as per neurology. Carotid duplex showed no significant stenosis. Patient will be continued on aspirin and statins. 2-D echo cardiac exam showed his ejection fraction 50%. No evidence of shunt noted. A1c 6.3. Speech and swallow evaluation and PT OT was consulted. Repeat CT head showed evolving CVA..Patient is not able to swallow. CODE STATUS is Comfort care. Family would like to be transferred to hospice care.. Time with Patient: Greater than 30
== END 2021-01-25 19:36 | disposition hospice, inpatient (51) | DRG 64 ==
LOC: EC 13:35 → 3SCARD 17:22 → 2SICU 01-22 15:43 → 3SCARD 01-24 20:30
PROVIDERS: ADMIT Internal Medicine; ATTEND Internal Medicine
DX: I63.512 Cerebral infarction due to unspecified occlusion or stenosis of left middle cerebral artery (principal); G93.6 Cerebral edema; E87.0 Hyperosmolality and hypernatremia; G81.91 Hemiplegia, unspecified affecting right dominant side; N17.9 Acute kidney failure, unspecified; I65.22 Occlusion and stenosis of left carotid artery; Z66 Do not resuscitate; Z51.5 Encounter for palliative care; T50.905A Adverse effect of unspecified drugs, medicaments and biological substances, initial encounter; I10 Essential (primary) hypertension; R29.732 NIHSS score 32; I25.10 Atherosclerotic heart disease of native coronary artery without angina pectoris; I25.2 Old myocardial infarction; I48.91 Unspecified atrial fibrillation; R13.10 Dysphagia, unspecified; R29.810 Facial weakness; R47.01 Aphasia; Z79.82 Long term (current) use of aspirin; Z79.899 Other long term (current) drug therapy; Z82.49 Family history of ischemic heart disease and other diseases of the circulatory system; Z87.891 Personal history of nicotine dependence; Z95.5 Presence of coronary angioplasty implant and graft; Z82.3 Family history of stroke
CPT/HCPCS: 36415; 70450; 70551; 71045; 80048; 80053; 80061; 81001; 82607; 82747; 83036; 84443; 84484; 85025; 85610; 85730; 93005; 93306; 93880; 94760; 96361; 96374; 99285

== ENCOUNTER 2021-01-25 18:32 | Inpatient (IN) | payer MEDICAID ==
[2021-01-25] MEDS ORDERED: ONDANSETRON 4 MG/2 ML VIAL IVP PRN (19:24)
[2021-01-25] MEDS ORDERED: MORPHINE SULFATE 2 MG/ML SYRINGE IVP ONE (19:24)
[2021-01-25] MEDS: MORPHINE SULFATE (100 MG/2 ML) 100 MG in SODIUM CHLORIDE 0.9% 100 ML IV SCH (21:01)
[2021-01-25] MEDS: ATROPINE OPHTH SOLN 1% 5ML BTL SUBLINGUAL PRN (21:30)
[2021-01-25] MEDS: LORazepam 2 MG/ML INJ IV PRN (21:30)
[2021-01-26] MEDS: ATROPINE OPHTH SOLN 1% 5ML BTL SUBLINGUAL PRN ×4 (05:23→20:02)
[2021-01-26] MEDS: MORPHINE SULFATE (100 MG/2 ML) 100 MG in SODIUM CHLORIDE 0.9% 100 ML IV SCH ×2 (11:11→20:04)
[2021-01-26] MEDS: ACETAMINOPHEN SUPPOSITORY 650 MG SUPP RECTAL PRN ×3 (11:49→20:31)
[2021-01-26] MEDS: LORazepam 2 MG/ML INJ IV PRN ×2 (11:53→18:11)
[2021-01-27] MEDS: ACETAMINOPHEN SUPPOSITORY 650 MG SUPP RECTAL PRN (01:21)
[2021-01-27] MEDS: MORPHINE SULFATE (100 MG/2 ML) 100 MG in SODIUM CHLORIDE 0.9% 100 ML IV SCH ×4 (02:27→20:34)
[2021-01-27] MEDS: ATROPINE OPHTH SOLN 1% 5ML BTL SUBLINGUAL PRN (03:23)
[2021-01-28 01:15] VITALS: PULSE 125; RESP 19; TEMP 98.8
--- NOTE | 2021-01-29 16:08 | P.HPIM ---
History of Present Illness H&P Date: 01/26/21 Chief Complaint: Acute CVA Patient is a 70-year-old male with a known history of hypertension, history of ID and coronary artery disease with stent placement in 2002, previous history of smoking was brought to the hospital by family due to altered mental status. Patient last known well at about 7 PM last night. Patient has been increasingly sleepy and found by family around 11 AM. He was not responding well due to altered mental status and could not communicate. Family also noticed that his right arm and leg are not moving. according to the family patient has not been feeling well for the past 1 month. He is increasingly weak and lethargic. Decrease of oral intake. Patient does not have any fever or chills. No cough or sputum production. No nausea vomiting or diarrhea. Currently patient is unable and mostly history was taken from the family at bedside. Patient was hypotensive with systolic pressure in the 80s and was given 2 L fluid bolus in the ER. CT head without contrast showed moderate to large left MCA territory acute to subacute infarct. No hemorrhagic transformation. Minimal 2 mm of rightward midline shift. Fluid in the left mastoid air cells possible mastoiditis. Chest x-ray showed limited portable chest. Hazy densities related to overlying soft tissue. No definite acute process. EKG showed normal sinus rhythm. Laboratory data showed WBC 16.8, hemoglobin 14.8 and platelets 439 Sodium 135 potassium 5.0 chloride 106 bicarb is 16 BUN 85 and creatinine 5.04, AST 27 ALT 32 and alk phos 146 UA is negative for infection. Pt. is in the telemetry unit. Patient's mental status and weakness. Able to open his eyes but could not communicate. The patient is more lethargic. MRI of the brain was done showed large area of abnormal increased signal involving the left MCA territory with mass effect on the lateral ventricle. 2 mm rightward midline shift. Neurology is following. Recommended to start on mannitol. Patient will be transferred to ICU for close monitoring. Laboratory data showed WBC 18.3, hemoglobin 14.0 and platelets 388 BUN 86 and creatinine 3.73. Improving renal function. LDL 101.8 and B12 749 and TSH 0.983 01/23/2021 Patient is currently in MICU. Mental condition remains the same. Able to open his eyes. Could not communicate. patient is weak and lethargic. Yesterday, I did Discuss with the transfer team and physician at [facility]. Patient is out of window for any surgical intervention including thrombectomy as per neurology. Patient is being continued on supportive care. Continue with aspirin and statins. Follow-up repeat CT scan is pending. Laboratory data showed WBC 16.2 hemoglobin 14.4 and platelets 393, sodium 147, chloride 1017, BUN 78 and creatinine 2.5 blood sugar is 141 Neurology and critical care team is on board. 01/24/2021 Patient is lying in the bed. Awake and alert. Able to open his eyes and moves his head slightly with verbal commands. Unable to swallow. Could not be able to recognize family. Does have the cough and unable to clear secretions in the throat. Patient has been afebrile. Follow-up CT on 01/23/2021 showed evolving left MCA infarct with greater degree of hypodensity. Discussed with his at bedside in detail. Family is considering comfort care at this time but would finalize decision after discussing with his for sons. Current CODE STATUS is DO NOT RESUSCITATE/DO NOT INTUBATE. Laboratory data showed worsening WBC count 18.7 and hemoglobin 13.3 and platelets 365 Sodium 134 potassium 4.7 BUN 75 and creatinine 2.3. IV fluids changed to D5 water. 01/25/2021 Patient is currently lying in the bed. No improvement in mental status. Patient is not able to swallow . Patient went into atrial fibrillation with rapid lower rate and Cardizem drip was started. Due to evolving acute massive CVA and other multiple comorbid conditions family would like to go for hospice care at this time. 01/26/2021 Patient is currently under hospice care. Continued on morphine drip and pain management. He appears comfortable. Review of Systems Could not be obtained. Past Medical History Past Medical History: Hypertension, Myocardial Infarction (ID) Last Myocardial Infarction Date:: 2002 History of Any Multi-Drug Resistant Organisms: None Reported Past Surgical History: Heart Catheterization With Stent, Hernia Repair Past Anesthesia/Blood Transfusion Reactions: No Reported Reaction Date of Last Stent Placement:: 2002 Past Psychological History: No Psychological Hx Reported Smoking Status: Former smoker Additional Drug Use History / Comment(s): quit smoking 2 months ago; smoked pack/day - Past Family History Father Family Medical History: Myocardial Infarction (ID) Mother Family Medical History: CVA/TIA Medications and Allergies Home Medications Medication Instructions Recorded Confirmed Type Atorvastatin Calcium [Lipitor] 20 mg PO DAILY 01/21/21 01/25/21 History Lisinopril [Prinivil] 10 mg PO DAILY 01/21/21 01/25/21 History atenoloL [Atenolol] 25 mg PO DAILY 01/21/21 01/25/21 History Allergies Allergy/AdvReac Type Severity Reaction Status Date / Time No Known Allergies Allergy Verified 01/21/21 17:06 Physical Exam Vitals: Vital Signs Temp Pulse Resp Pulse Ox 01/26/21 11:14 101 F H 109 H 18 92 L 01/26/21 10:05 98.6 F 110 H 16 01/26/21 06:22 118 H 16 01/26/21 05:25 118 H 20 01/26/21 04:00 100.4 F H 117 H 24 01/26/21 01:57 34 H 01/25/21 23:58 101.0 F H 114 H 28 H 01/25/21 23:16 101.0 F H 123 H 36 H 96 01/25/21 20:00 101.8 F H 32 H 01/25/21 19:54 101.8 F H 38 H Intake and Output 01/25/21 01/26/21 01/26/21 22:59 06:59 14:59 Intake Total 1.258 30.243 64.26 Output Total 550 325 Balance -548.742 -294.757 64.26 Intake: Intake, IV Titration 1.258 30.243 64.26 Amount Morphine Sulfate (100 mg/ 1.258 30.243 64.26 2 ml) 100 mg In Sodium Chloride 0.9% 100 ml @ 1 MG/HR 1.02 mls/hr IV . Q24H [facility] Rx#:[id number] Output: Urine 550 325 Other: Voiding Method Indwelling Catheter Indwelling Catheter Weight 95.5 kg 96 kg PHYSICAL EXAMINATION: Patient is lying in the bed , lethargic and obtunded. HEENT: Normocephalic. Neck is supple. Pupils reactive. Nostrils clear. Oral cavity is moist. Neck reveals no JVD, carotid bruits, or thyromegaly. CHEST EXAMINATION: Trachea is central. Bibasilar diminished sounds.. CARDIAC: Normal S1, S2 with no gallops. No murmurs ABDOMEN: Soft. Bowel sounds present. Extremities: reveal no edema. No clubbing or cyanosis Neurologically patient is obtained and I will to follow commands.. Right-sided paralysis. mouth deviation. Skin: No rash or skin lesions. Psychiatric: Could not be assessed at this time. Musculoskeletal: No joint swelling or deformity. 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 Repeat CT showed evolving stroke. Acute kidney injury with creatinine level 5.04. Likely prerenal. possible ATN Metabolic acidosis secondary to acute kidney injury New onset atrial fibrillation with rapid regular rate Hypovolemic hyponatremia Hypertension. Currently hypotensive Coronary artery disease with history of stent placement in 2002 Previous history of smoking DVT prophylaxis with SCDs Plan: Patient be continued on morphine and Ativan pain control. Continued comfort care. Family is at bedside.
== END 2021-01-28 05:05 | disposition expired | DRG 64 ==
LOC: 3SCARD 19:38
PROVIDERS: ADMIT Internal Medicine; ATTEND Internal Medicine
DX: I63.512 Cerebral infarction due to unspecified occlusion or stenosis of left middle cerebral artery (principal); N17.0 Acute kidney failure with tubular necrosis; G81.91 Hemiplegia, unspecified affecting right dominant side; Z51.5 Encounter for palliative care; Z66 Do not resuscitate; Z79.899 Other long term (current) drug therapy; Z82.49 Family history of ischemic heart disease and other diseases of the circulatory system; Z87.891 Personal history of nicotine dependence; Z95.5 Presence of coronary angioplasty implant and graft; I48.91 Unspecified atrial fibrillation; I25.2 Old myocardial infarction; I25.10 Atherosclerotic heart disease of native coronary artery without angina pectoris; I10 Essential (primary) hypertension; I95.9 Hypotension, unspecified